=== PATIENT | male | born 1945 | race Caucasian/White ===

== ENCOUNTER 2023-06-14 05:49 | Emergency (ER) | payer MEDICARE, MEDICAID, SELFPAY ==
--- NOTE | ~2023-06-14 | CT_ITS ---
CT head without contrast Indication: Seizure Technique: Serial scans were obtained through the brain without the administration of contrast. Dose reduction technique was used on this scan by utilizing automated exposure control and iterative recon struction technique. The dose-length product (DLP) was 605.33 mGy-cm. Findings: There is no evidence of intracranial hemorrhage, mass lesion, or acute infarct. The ventri cles and subarachnoid spaces are dilated, consistent with moderate to advanced atrophy. Low attenuat ion regions are seen within the periventricular white matter bilaterally, likely representing changes from chronic microvascular ischemic disease. There is no evidence of edema, mass effect or midline shift. The visualized paranasal sinuses and mastoid air cells are clear. Impression: No intracranial hemorrhage, mass, or acute infarct. Atrophy and chronic white matter changes, as above. Reviewed, dictated and finalized at location . Impression: No intracranial hemorrhage, mass, or acute infarct. Atrophy and chronic white matter changes, as above.
[2023-06-14 05:48] VITALS: BP 160/76; PULSE 99; RESP 14; TEMP 36.6; O2SAT 100
[2023-06-14 06:04] VITALS: O2SAT 97
[2023-06-14 06:06] VITALS: PULSE 97; O2SAT 99
--- NOTE | 2023-06-14 06:09 | PC.NURSE ---
This RN called [facility]. ISAIAS Zapien at facility states pt is normally a&ox2-3. Pt is a two assist and does not ambulate. Pt normally able to feed himself and follows instructions.
--- NOTE | 2023-06-14 06:16 | ECG_ITS ---
Measurements Intervals [place] Rate: 102 P: 76 VA: 203 QRS: 57 QRSD: 93 T: 54 QT: 346 QTc: 452 Interpretive Statements SINUS TACHYCARDIA BORDERLINE ST-T WAVE ABNORMALITY- INF/LAT LEADS BASELINE ARTIFACT- II, III, AVR, AVL, AVF, V1-V4 BORDERLINE ECG NO PREVIOUS ECG AVAILABLE FOR COMPARISON Electronically Signed On 06-14-2023 6:39:15 CDT by Michael Najera D.O.
[2023-06-14 06:34] LABS: Basophils Absolute Auto 0.1 K/mm3 (0.0-0.1); Eosinophils Absolute Auto 0.2 K/mm3 (0-0.3); Eosinophils Percent Auto 3.3 % (0-4.4); Hematocrit 36.7 % (42.0-52.0); Hemoglobin 12.1 g/dL (14.0-18.0); Immature Granulocyte Absolute 0.03 K/mm3 (0.00-0.031); Immature Granulocyte Percent A 0.4 % (0-0.5); Lymphocytes Absolute Auto 1.47 K/mm3 (0.9-3.2); Lymphocytes Percent Auto 20.1 % (18.3-44.2); Mean Corpuscular Hemoglobin 31.3 pg (26-34); Mean Corpuscular Volume 95.1 fl (80-100); Mean Platelet Volume 9.3 fl (7.4-10.4); Monocytes Absolute Auto 0.8 K/mm3 (0.1-0.6); Monocytes Percent Auto 11.1 % (2.6-8.5); Neutrophils Absolute Auto 4.7 K/mm3 (1.3-6.7); Neutrophils Percent Auto 64.1 % (45.5-73.1); Platelet Count Result 290 k/mm3 (150-375); Red Blood Count 3.86 M/mm3 (4.6-6.20); Red Cell Distribution Width 12.3 % (11.5-14.5); White Blood Count 7.3 K/mm3 (4.5-10.0)
[2023-06-14 06:49] LABS: Alanine Aminotransferase 18 U/L (6-50); Albumin Level 3.8 g/dL (3.5-5.1); Alkaline Phosphatase 116 U/L (38-126); Anion Gap 8 mmol/L (8-16); Aspartate Amino Transferase 27 U/L (17-59); Bilirubin,Total 0.4 mg/dL (0.2-1.3); Blood Urea Nitrogen 10 mg/dL (9-20); Calcium 8.7 mg/dL (8.4-10.2); Carbon Dioxide 25 mmol/L (22-30); Chloride 103 mmol/L (98-107); Estimated CRCL calculation 90 ml/min; Estimated Glomerular Filt Rate > 60; Glucose 106 mg/dL (65-110); Potassium 3.9 mmol/L (3.4-5.0); Sodium 136 mmol/L (137-145)
[2023-06-14] MEDS: LORazepam INJ (*CRX) 2 MG/ML VIAL (06:50)
[2023-06-14 07:01] VITALS: BP 193/102; PULSE 119; RESP 19; O2SAT 99
[2023-06-14 07:15] VITALS: BP 159/75; PULSE 102; RESP 15; O2SAT 95
--- NOTE | 2023-06-14 07:20 | PC.NURSE ---
bssr given to ISAIAS Bernstein at this time.
--- NOTE | 2023-06-14 07:23 | PC.NURSE ---
Updated spouse on pt status
--- NOTE | 2023-06-14 09:26 | PC.NURSE ---
Patient too drowsy to take PO medication.
--- NOTE | 2023-06-14 09:48 | ED.SEIZURE ---
HPI - Seizure General Chief Complaint: Seizure Stated Complaint: SEIZURE Time Seen by Provider: 06/14/23 07:00 History of Present Illness HPI Narrative: Patient is a 69-year-old male who presents ER after having seizure at his facility. Patient is on Keppra 1.5 g in the morning and 2 g in the evening, as well as Tegretol 600 mg b.i.d.. No reports of trauma. Patient is awake alert at this time. He does have dementia and cannot provide history. Related Data Home Medications Medication Instructions Recorded Confirmed amlodipine 10 mg tablet 10 mg DAILY 06/14/23 06/14/23 atorvastatin 40 mg tablet 40 mg PO DAILY 06/14/23 06/14/23 carbamazepine 300 mg 600 mg PO Q12H 06/14/23 06/14/23 capsule,extended release [id number] donepezil 5 mg tablet 5 mg PO HS 06/14/23 06/14/23 levetiracetam 1,000 mg tablet 2,000 mg PO HS 06/14/23 06/14/23 levetiracetam 750 mg tablet 1,500 mg PO DAILY 06/14/23 06/14/23 memantine 5 mg tablet 5 mg PO BID 06/14/23 06/14/23 Allergies Allergy/AdvReac Type Severity Reaction Status Date / Time Iodinated Contrast Media Allergy Unknown Verified 06/14/23 06:23 metrizamide Allergy Unknown Verified 06/14/23 06:23 simvastatin Allergy Unknown Verified 06/14/23 06:23 Review of Systems Review of Systems: ROS unobtainable: Yes unobtainable due to mental status PMFSH Past Medical History Medical History (Updated 06/14/23 @ 12:20 by Rob Tong MD) Dementia Hyperlipidemia Hypertension Seizure disorder Social History Social History (Updated 06/14/23 @ 10:00 by Rob Tong MD) Social History: resides at [facility], patient is a DNR Exam Narrative: GENERAL: Well-appearing, well-nourished, and in no acute distress. HEAD: Normocephalic, atraumatic. EYES: PERRL and EOMI. ENT: Mucous membranes moist. CHEST: Clear to auscultation. No respiratory distress. HEART: Regular rate and rhythm. Normal peripheral pulses. ABDOMEN: Soft, nontender, nondistended. EXTREMITIES: Normal range of motion. No edema. SKIN: Warm, dry, no rash. abrasion right hand dorsal aspect NEURO: Alert and oriented x1. PSYCH: Normal mood and affect. Course Course Emergency Course: Alisha infused. Seizure free since 6:30 a.m.. Discharge back to facility. Vital Signs Vital signs: Vital Signs Temperature 97.9 F 06/14/23 05:48 Pulse Rate 99 06/14/23 05:48 Respiratory Rate 14 06/14/23 05:48 Blood Pressure 160/76 H 06/14/23 05:48 Pulse Oximetry 100 06/14/23 05:48 Oxygen Delivery Room Air 06/14/23 05:48 Temperature 97.9 F 06/14/23 05:48 Pulse Rate 70 06/14/23 12:16 Respiratory Rate 26 H 06/14/23 12:16 Blood Pressure 149/69 H 06/14/23 12:16 Pulse Oximetry 99 06/14/23 12:16 Oxygen Delivery Nasal Cannula 06/14/23 07:15 MDM - Seizure Lab Data 06/14/23 06:22 06/14/23 06:22 Labs: Lab Results 06/14/23 Range/Units 06:22 WBC 7.3 (4.5-10.0) K/mm3 RBC 3.86 L (4.6-6.20) M/mm3 Hgb 12.1 L (14.0-18.0) g/dL Hct 36.7 L (42.0-52.0) % MCV 95.1 (80-100) fl MCH 31.3 (26-34) pg MCHC 33.0 (32-36) g/dl RDW 12.3 (11.5-14.5) % Plt Count 290 (150-375) k/mm3 MPV 9.3 (7.4-10.4) fl Immature Gran % (Auto) 0.4 (0-0.5) % Neut % (Auto) 64.1 (45.5-73.1) % Lymph % (Auto) 20.1 (18.3-44.2) % [place] % (Auto) 11.1 H (2.6-8.5) % Eos % (Auto) 3.3 (0-4.4) % Baso % (Auto) 1.0 (0.2-1.2) % Lymph # (Auto) 1.47 (0.9-3.2) K/mm3 [place] # (Auto) 0.8 H (0.1-0.6) K/mm3 Eos # (Auto) 0.2 (0-0.3) K/mm3 Baso # (Auto) 0.1 (0.0-0.1) K/mm3 Abs Immat Gran (auto) 0.03 (0.00-0.031) K/mm3 Absolute Neuts (auto) 4.7 (1.3-6.7) K/mm3 Absolute Nucleated RBC 0.000 (0.0-0.012) K/mm3 Nucleated RBC % 0.0 (0.0-0.2) % Sodium 136 L (137-145) mmol/L Potassium 3.9 (3.4-5.0) mmol/L Chloride 103 (98-107) mmol/L Carbon Dioxide 25 (22-30) mmol/L Anion Gap 8 (8-16) mmol/L BUN 10 (9-20) mg/dL Creatinine 0.70 (0.7-1.3) mg/dL Estim Creat Clear Calc 90 ml/min Estimated GFR > 60 (59 - ) Glucose 106 (65-110) mg/dL Calcium 8.7 (8.4-10.2) mg/dL Total Bilirubin 0.4 (0.2-1.3) mg/dL AST 27 (17-59) U/L ALT 18 (6-50) U/L Alkaline Phosphatase 116 (38-126) U/L Total Protein 6.0 L (6.3-8.2) g/dL Albumin 3.8 (3.5-5.1) g/dL Discharge Plan Discharge Clinical Impression: Breakthrough seizure Patient Disposition: Home, Self-Care Condition: Stable Instructions: Recurrent Seizures in Adults (ED) Additional Instructions: return the ER if you have fever 100.4? F, you cannot keep down food or water, you lose consciousness, or you have additional concerns. Prescriptions: No Action atorvastatin 40 mg Tablet 40 mg PO DAILY donepezil 5 mg Tablet 5 mg PO HS amlodipine 10 mg Tablet 10 mg DAILY levetiracetam 750 mg Tablet 1,500 mg PO DAILY memantine 5 mg Tablet 5 mg PO BID carbamazepine 300 mg Capsule, Er Multiphase 12 Hr 600 mg PO Q12H levetiracetam 1,000 mg Tablet 2,000 mg PO HS Follow-up/Referrals: Miguel,Gildardo Hill DO [Primary Care Provider] - 1 Week
[2023-06-14 12:16] VITALS: BP 149/69; PULSE 70; RESP 26; O2SAT 99
== END 2023-06-14 13:25 | disposition home or self-care (01) ==
PROVIDERS: Emergency Provider Emergency Medicine; PCP Internal Medicine
DX: G40.909 Epilepsy, unspecified, not intractable, without status epilepticus (principal); F03.90 Unspecified dementia, unspecified severity, without behavioral disturbance, psychotic disturbance, mood disturbance, and anxiety; I10 Essential (primary) hypertension; E78.5 Hyperlipidemia, unspecified; R00.0 Tachycardia, unspecified; R94.31 Abnormal electrocardiogram [ECG] [EKG]
CPT/HCPCS: 36415; 70450; 80053; 85025; 93005; 96365; 96375; 99284; J1953; J2060

== ENCOUNTER 2023-07-01 17:05 | Emergency (ER) | payer MEDICARE, SELFPAY ==
--- NOTE | ~2023-07-01 | CT_ITS ---
EXAMINATION: CT cervical spine wo con DATE: 07/01/2023 18:55 INDICATION: fall TECHNIQUE: Computed tomography (CT) of the cervical spine was performed without intravenous contrast. Automated exposure control and iterative reconstruction technique were employed. The dose-length pro duct was 434.06 mGy-cm. COMPARISON: None. FINDINGS: Vertebral Body Alignment: Intact. Mild reversal of the normal cervical lordosis centered at C5-6. Craniocervical and atlantoaxial alignment: Moderate degenerative change. Alignment intact. Osseous structures/fracture: No evidence of a lytic or blastic process in the visualized spine. No e vidence of acute fracture in the cervical spine. Mild anterior wedge deformity at T1. Cervical soft tissues: The paraspinal soft tissues planes are maintained. Degenerative changes: Degenerative changes, without severe neural foraminal or central canal narrowin g. IMPRESSION: No acute fracture or traumatic malalignment in the cervical spine. Mild anterior wedge deformity at T1 represent acute or chronic compression fracture, correlate for pa in/tenderness. Reviewed, dictated and finalized at location K. IMPRESSION: No acute fracture or traumatic malalignment in the cervical spine. Mild anterior wedge deformity at T1 represent acute or chronic compression frac ture, correlate for pain/tenderness.
--- NOTE | ~2023-07-01 | CT_ITS ---
EXAMINATION: CT brain wo con DATE: 07/01/2023 18:55 INDICATION: fall . TECHNIQUE: Computed tomography (CT) of the head was performed without intravenous contrast. The mA wa s adjusted according to patient size. Iterative reconstruction technique was employed. The dose-lengt h product was 605.33 mGy-cm. COMPARISON: 06/14/2023. FINDINGS: No acute intracranial hemorrhage or extra-axial fluid collection. No hydrocephalus, mass, or herniation. No acute ischemic infarct. Unremarkable dural venous sinus attenuation. No acute osseous abnormality. The aerated spaces are clear. Moderate atrophy and chronic white matter change. Atherosclerotic intracranial calcification. Basilar dolichoectasia. IMPRESSION: No acute intracranial process. Reviewed, dictated and finalized at location K.
--- NOTE | ~2023-07-01 | CT_ITS ---
EXAMINATION: CT pelvis wo con DATE: 07/01/2023 18:56 INDICATION: Fall, sacral pain TECHNIQUE: Computed tomography (CT) of the pelvis was performed without intravenous contrast. Automat ed exposure control and iterative reconstruction technique were employed. The dose-length product was 641.84 mGy-cm. COMPARISON: None FINDINGS: Osseous demineralization. Severe degenerative changes in the lumbar spine. Scattered bone i slands. No fracture or dislocation. No suspicious lytic or blastic lesion. Atherosclerotic arterial c alcifications. Mild body wall edema. Normal urinary bladder. Presumed prostatectomy. Mild presacral e margi. IMPRESSION: No acute osseous finding in the pelvis Reviewed, dictated and finalized at location K.
[2023-07-01 17:11] VITALS: BP 152/68; PULSE 67; RESP 16; TEMP 36.4; O2SAT 100
--- NOTE | 2023-07-01 18:07 | ED.HEATRA ---
HPI - Head Injury General Chief complaint: Head Injury Stated complaint: fall, LOC, dementia Time Seen by Provider: 07/01/23 17:07 History of Present Illness HPI Narrative: 77-year-old male with history of dementia and seizure disorder presents to the ED from [facility] via EMS for a fall. Per EMS report, the patient slid out of his wheelchair and hit his head. Is unknown whether patient had loss of consciousness. The patient is reporting pain to the posterior head. C-collar in place by EMS. He is alert to self which is his baseline per half-way staff. He is not anticoagulated. He is also reporting pain to his low back near his buttocks. Denies chest pain, shortness of breath, dizziness or lightheadedness, vision changes, focal numbness or weakness abdominal pain nausea, diarrhea fever. Related Data Home Medications Medication Instructions Recorded Confirmed amlodipine 10 mg tablet 10 mg DAILY 06/14/23 06/14/23 atorvastatin 40 mg tablet 40 mg PO DAILY 06/14/23 06/14/23 carbamazepine 300 mg 600 mg PO Q12H 06/14/23 06/14/23 capsule,extended release [id number] donepezil 5 mg tablet 5 mg PO HS 06/14/23 06/14/23 levetiracetam 1,000 mg tablet 2,000 mg PO HS 06/14/23 06/14/23 levetiracetam 750 mg tablet 1,500 mg PO DAILY 06/14/23 06/14/23 memantine 5 mg tablet 5 mg PO BID 06/14/23 06/14/23 Allergies Allergy/AdvReac Type Severity Reaction Status Date / Time Iodinated Contrast Media Allergy Unknown Verified 06/14/23 06:23 metrizamide Allergy Unknown Verified 06/14/23 06:23 simvastatin Allergy Unknown Verified 06/14/23 06:23 Review of Systems Review of Systems: CONSTITUTIONAL: Denies fever, chills, or sweats. EYES: Denies visual changes, redness, or discharge. ENT: Denies rhinorrhea, congestion, sore throat, or otalgia. CARDIOVASCULAR: Denies chest pain, palpitations, or edema. RESPIRATORY: Denies cough or dyspnea. GASTROINTESTINAL: Denies abdominal pain, nausea, vomiting, or diarrhea. GENITOURINARY: Denies dysuria or hematuria. SKIN: Denies rash or itching. MUSCULOSKELETAL: See HPI NEUROLOGIC: Denies headache, numbness, or weakness. PSYCHIATRIC: Denies anxiety or depression. [facility] Past Medical History Medical History Dementia Hyperlipidemia Hypertension Seizure disorder Social History Social History Social History: resides at [facility], patient is a DNR Exam Narrative: GENERAL: Well-appearing, well-nourished, and in no acute distress. HEAD: Normocephalic, atraumatic. EYES: PERRLA and EOMI. ENT: Nares clear, no rhinorrhea or epistaxis. Mucous membranes moist. NECK: C-collar in place. Once C-collar removed, there is no tenderness, step-offs or deformities to the cervical spine. BACK: No midline thoracic or lumbar spinous tenderness, step-offs or deformities. Midline tenderness to the sacrum without step-offs or deformities. No overlying ulcerations or ecchymosis. CHEST: Clear to auscultation. No respiratory distress. HEART: Regular rate and rhythm. No murmur heard. Normal peripheral pulses. ABDOMEN: Soft, nontender, nondistended, normal active bowel sounds. EXTREMITIES: Normal range of motion. No edema. No tenderness to upper lower extremities. Extremities are pain, warm and dry, well perfused. SKIN: Warm, dry, no rash. NEURO: No focal deficits. Alert and oriented x1. Cranial nerves 2-12 intact. Sensation intact throughout. Moving all extremities spontaneously. Course Vital Signs Vital signs: Vital Signs Temperature 97.6 F 07/01/23 17:11 Pulse Rate 67 07/01/23 17:11 Respiratory Rate 16 07/01/23 17:11 Blood Pressure 152/68 H 07/01/23 17:11 Pulse Oximetry 100 07/01/23 17:11 Oxygen Delivery Room Air 07/01/23 17:11 Temperature 97.8 F 07/01/23 19:27 Pulse Rate 66 07/01/23 20:53 Respiratory Rate 12 07/01/23 20:53 Blood Pressure 148/60 H 07/01/23 20:53 Pulse Oximetry 99 07/01/23 20:53 Oxygen Delivery Room Air 07/01/23 17:11 MDM - Head Injury MDM Narrative Medical decision making narrative: 69-year-old male with history of dementia presents via EMS after falling out of his wheelchair onto the ground. Unknown LOC. C-collar in place. He is A&O x1 which is his baseline. He is not anticoagulated. Vital stable. Exam is significant for the above. CBC without leukocytosis. Hemoglobin is stable at 12. Chemistries show a sodium of 132, otherwise largely unremarkable. His CK is normal at 49. CT of the brain shows no acute intracranial process. CT cervical spine shows no acute fracture traumatic malalignment, there is evidence of mild anterior wedge deformity at T1 which represents an acute or chronic compression fracture. The patient has no tenderness to this region, he remains neurologically intact.. C-collar removed. CT of the pelvis shows no acute osseous findings in the pelvis or sacrum. EKG shows sinus rhythm with first-degree AV block, no ischemic changes. UA with 2+ bacteriuria and nitrites. On re-evaluation, patient states he feels fine. He has no complaints. Will provide Cipro for UTI, 1st dose provided here. Feel he is safe to be discharged back to his half-way facility. Discharged in stable condition. Lab Data 07/01/23 18:29 07/01/23 18:29 Labs: Lab Results 07/01/23 07/01/23 Range/Units 18:29 19:46 WBC 8.1 (4.5-10.0) K/mm3 RBC 3.77 L (4.6-6.20) M/mm3 Hgb 12.0 L (14.0-18.0) g/dL Hct 36.5 L (42.0-52.0) % MCV 96.8 (80-100) fl MCH 31.8 (26-34) pg MCHC 32.9 (32-36) g/dl RDW 12.8 (11.5-14.5) % Plt Count 312 (150-375) k/mm3 MPV 8.9 (7.4-10.4) fl Immature Gran % (Auto) 0.5 (0-0.5) % Neut % (Auto) 74.0 H (45.5-73.1) % Lymph % (Auto) 12.2 L (18.3-44.2) % [place] % (Auto) 10.5 H (2.6-8.5) % Eos % (Auto) 2.1 (0-4.4) % Baso % (Auto) 0.7 (0.2-1.2) % Lymph # (Auto) 0.99 (0.9-3.2) K/mm3 [place] # (Auto) 0.9 H (0.1-0.6) K/mm3 Eos # (Auto) 0.2 (0-0.3) K/mm3 Baso # (Auto) 0.1 (0.0-0.1) K/mm3 Abs Immat Gran (auto) 0.04 H (0.00-0.031) K/mm3 Absolute Neuts (auto) 6.0 (1.3-6.7) K/mm3 Absolute Nucleated RBC 0.000 (0.0-0.012) K/mm3 Nucleated RBC % 0.0 (0.0-0.2) % Sodium 132 L (137-145) mmol/L Potassium 4.6 (3.4-5.0) mmol/L Chloride 97 L (98-107) mmol/L Carbon Dioxide 31 H (22-30) mmol/L Anion Gap 4 (4-12) mmol/L BUN 18 (9-20) mg/dL Creatinine 0.60 L (0.7-1.3) mg/dL Estim Creat Clear Calc 83 ml/min Estimated GFR > 60 (59 - ) Glucose 105 (65-110) mg/dL Calcium 8.7 (8.4-10.2) mg/dL Total Bilirubin 0.4 (0.2-1.3) mg/dL AST 21 (17-59) U/L ALT 13 (6-50) U/L Alkaline Phosphatase 113 (38-126) U/L Total Creatine Kinase 49 L (55-170) U/L Total Protein 7.0 (6.3-8.2) g/dL Albumin 3.9 (3.5-5.1) g/dL Urine Color Yellow (Yellow) Urine Appearance Clear (Clear) Urine pH 7.0 (5.0-9.0) Ur Specific [place] 1.014 (1.001-1.035) Urine Protein Negative (Negative) mg/dL Urine Glucose (UA) Negative (Negative) mg/dL Urine Ketones Negative (Negative) mg/dL Ur Blood (Man) Negative (Negative) Urine Nitrate Positive H (Negative) Urine Bilirubin Negative (Negative) Urine Urobilinogen 1.0 (<2.0) mg/dL Leukocyte Esterase Rfl Negative (Negative) SUGEY/UL Urine RBC 0-2 (0-2) /hpf Urine WBC 0-5 (0-3) /hpf Ur Squamous Epith Cells None seen (Few) /hpf Urine Bacteria 2+ H /hpf Urine Casts 0-2 Urine Characteristics Clear Discharge Plan Discharge Clinical Impression: Closed head injury Qualifiers: Encounter type: initial encounter Qualified Code(s): S09.90XA - Unspecified injury of head, initial encounter Fall Qualifiers: Encounter type: initial encounter Qualified Code(s): W19.XXXA - Unspecified fall, initial encounter Compression fracture of T1 vertebra Qualifiers: Encounter type: sequela Qualified Code(s): S22.010S - Wedge compression fracture of first thoracic vertebra, sequela UTI (urinary tract infection) Qualifiers: Urinary tract infection type: acute cystitis Hematuria presence: without hematuria Qualified Code(s): N30.00 - Acute cystitis without hematuria Patient Disposition: Acute Care Hospital Condition: Stable Instructions: Antibiotic Form, Urinary Tract Infection in Men (DC), Head Injury (ED) Additional Instructions: Your CT scan shows a T1 compression fracture, however no tenderness area therefore it is likely old. The remainder of her CT scans are normal. Urine is concerning for urinary tract infection, send antibiotics, please take these as directed. Please follow closely with her primary care provider. Return to the emergency department if you hit your head, lose consciousness, or other concerning symptoms. Prescriptions: New ciprofloxacin HCl 250 mg tablet 250 mg PO Q12H Qty: 14 0RF No Action atorvastatin 40 mg Tablet 40 mg PO DAILY donepezil 5 mg Tablet 5 mg PO HS amlodipine 10 mg Tablet 10 mg DAILY levetiracetam 750 mg Tablet 1,500 mg PO DAILY memantine 5 mg Tablet 5 mg PO BID carbamazepine 300 mg Capsule, Er Multiphase 12 Hr 600 mg PO Q12H levetiracetam 1,000 mg Tablet 2,000 mg PO HS Follow-up/Referrals: Miguel,Gildardo Hill DO [Primary Care Provider] -
--- NOTE | 2023-07-01 18:18 | ECG_ITS ---
Measurements Intervals [place] Rate: 67 P: 100 SD: 244 QRS: 11 QRSD: 94 T: 17 QT: 416 AVG RR: 893 QTc: 431 QTCB: 440 QTCF: 431 Interpretive Statements SINUS RHYTHM WITH FIRST DEGREE AV BLOCK ABNORMAL ECG SEE SCANNED COPY FOR SIGNATURE MTDD
[2023-07-01 18:31] VITALS: BP 167/70; PULSE 69; RESP 15; O2SAT 99
[2023-07-01] MEDS: ACETAMINOPHEN 325 MG TABLET 650 MG PO (18:32)
[2023-07-01 18:40] LABS: Basophils Absolute Auto 0.1 K/mm3 (0.0-0.1); Basophils Percent Auto 0.7 % (0.2-1.2); Eosinophils Absolute Auto 0.2 K/mm3 (0-0.3); Eosinophils Percent Auto 2.1 % (0-4.4); Hematocrit 36.5 % (42.0-52.0); Immature Granulocyte Absolute 0.04 K/mm3 (0.00-0.031); Immature Granulocyte Percent A 0.5 % (0-0.5); Lymphocytes Absolute Auto 0.99 K/mm3 (0.9-3.2); Lymphocytes Percent Auto 12.2 % (18.3-44.2); Mean Corpuscular HGB Conc 32.9 g/dl (32-36); Mean Corpuscular Hemoglobin 31.8 pg (26-34); Mean Corpuscular Volume 96.8 fl (80-100); Mean Platelet Volume 8.9 fl (7.4-10.4); Monocytes Absolute Auto 0.9 K/mm3 (0.1-0.6); Monocytes Percent Auto 10.5 % (2.6-8.5); Platelet Count Result 312 k/mm3 (150-375); Red Blood Count 3.77 M/mm3 (4.6-6.20); Red Cell Distribution Width 12.8 % (11.5-14.5); White Blood Count 8.1 K/mm3 (4.5-10.0)
[2023-07-01 18:47] LABS: Creatine Kinase 49 U/L (55-170)
--- NOTE | 2023-07-01 19:05 | PC.NURSE ---
Report given to Donn ESPARZA, all questions answered
[2023-07-01 19:19] LABS: Alanine Aminotransferase 13 U/L (6-50); Albumin Level 3.9 g/dL (3.5-5.1); Alkaline Phosphatase 113 U/L (38-126); Anion Gap 4 mmol/L (4-12); Aspartate Amino Transferase 21 U/L (17-59); Bilirubin,Total 0.4 mg/dL (0.2-1.3); Blood Urea Nitrogen 18 mg/dL (9-20); Calcium 8.7 mg/dL (8.4-10.2); Carbon Dioxide 31 mmol/L (22-30); Chloride 97 mmol/L (98-107); Estimated CRCL calculation 83 ml/min; Estimated Glomerular Filt Rate > 60; Glucose 105 mg/dL (65-110); Potassium 4.6 mmol/L (3.4-5.0); Sodium 132 mmol/L (137-145)
[2023-07-01 19:27] VITALS: BP 134/54; PULSE 70; RESP 16; TEMP 36.6; O2SAT 100
[2023-07-01 20:47] LABS: Appearance Urine Clear (Clear); Bacteria Urine 2+ /hpf; Bilirubin Urine Negative (Negative); Blood Urine Negative (Negative); Color Urine Yellow (Yellow); Glucose Urine UA Negative (Negative); Ketones Urine Negative (Negative); Leukocyte Esterase Ur Negative LEU/UL (Negative); Nitrate Urine Positive (Negative); Non Pathogenic Casts 0-2; Protein Urine Negative (Negative); RBC Urine 0-2 /hpf (0-2); Specific Grav Ur 1.014 (1.001-1.035); Squamous Epithelial Cell Urine None Seen /hpf (Few); WBC Urine 0-5 /hpf (0-3)
[2023-07-01 20:49] LABS: Add Urine Microscopic? YES
[2023-07-01 20:53] VITALS: BP 148/60; PULSE 66; RESP 12; O2SAT 99
[2023-07-01 21:07] VITALS: BP 139/52; PULSE 65; RESP 13; O2SAT 99
[2023-07-01] MEDS: CIPROFLOXACIN 250 MG TABLET PO (21:15)
[2023-07-01 21:45] VITALS: BP 129/55; PULSE 64; RESP 16; O2SAT 99
== END 2023-07-01 22:22 ==
PROVIDERS: Emergency Provider Physician Assistant; PCP Internal Medicine
DX: S09.90XA Unspecified injury of head, initial encounter (principal); N30.00 Acute cystitis without hematuria; S22.010S Wedge compression fracture of first thoracic vertebra, sequela; F03.90 Unspecified dementia, unspecified severity, without behavioral disturbance, psychotic disturbance, mood disturbance, and anxiety; G40.909 Epilepsy, unspecified, not intractable, without status epilepticus; I10 Essential (primary) hypertension; E78.5 Hyperlipidemia, unspecified; Z66 Do not resuscitate; W05.0XXA Fall from non-moving wheelchair, initial encounter; X58.XXXD Exposure to other specified factors, subsequent encounter
CPT/HCPCS: 36415; 70450; 72125; 72192; 80053; 81001; 82550; 85025; 93005; 99284; A9270; L0140

== ENCOUNTER 2023-10-16 12:51 | Inpatient (IN) | payer OTHER, SELFPAY ==
[2023-10-16] VITALS (8 sets, daily range): BP systolic 123–137; BP diastolic 61–72; PULSE 68–98; RESP 16–20; TEMP 36.5–37.2; O2SAT 98–100; BMI 23.8
--- NOTE | ~2023-10-16 | US_ITS ---
EXAMINATION:US venous doppler LE BI INDICATION:New stroke. Pulmonary embolism. TECHNIQUE: Multiple grayscale, color flow and Doppler images of the right and left lower extremity de ep venous systems were obtained and reviewed. COMPARISON:No prior studies for comparison. FINDINGS: The right common femoral, superficial femoral and popliteal veins demonstrate normal respir atory variation, augmentation and compressibility. Color flow is also seen within the posterior tibi al, peroneal, greater saphenous and profunda veins. There is deep venous thrombosis of the left popliteal, posterior tibial, peroneal and gastrocnemius v eins. IMPRESSION: 1: Extensive deep venous thrombosis of the left lower extremity. Reviewed, dictated and finalized at location B.
--- NOTE | ~2023-10-16 | CT_ITS ---
CT brain wo con Ordering provider: Alisa Joy PA-C History: 78 years Male with . decreased levels of responsiveness . Comparison: July 01, 2023 Technique: CT of the head without contrast. Radiation reduction technique utilized. DLP is 605.33 mGy-cm. FINDINGS: BRAIN PARENCHYMA AND CSF SPACES: Mild leukoaraiosis and diffuse cortical atrophy. Mild atheromatous d isease. Slightly dilated ventricles. No midline shift, mass effect or hemorrhage. The brain parenchy ma and CSF spaces are otherwise normal. VISUALIZED PARANASAL SINUSES: Well aerated. MASTOIDS: Well aerated. BONES: The bones appear intact. SOFT TISSUES: Visualized nasopharynx is normal. Superficial soft tissues are normal. IMPRESSION: No acute intracranial findings. Reviewed, dictated and finalized at location A.
--- NOTE | ~2023-10-16 | MR_ITS ---
EXAMINATION: MR brain/brain stem wo con DATE: 10/19/2023 13:51 INDICATION: Altered mental status TECHNIQUE: Magnetic resonance imaging (MRI) of the brain and brainstem was performed without intraven ous contrast. Sequences included sagittal and axial T1-weighted SE, axial diffusion-weighted FS SE, a xial T2*-weighted GRE, axial T2-weighted FLAIR, and axial T2-weighted FSE. Postcontrast axial and cor onal T1-weighted SE was obtained. Apparent diffusion coefficient (ADC) maps were created. COMPARISON: None. FINDINGS: Small focus of restricted diffusion consistent with acute lacunar infarct in the left thalamus. There are a few scattered small old lacunar infarcts in the left frontal, right parietal and right peritri gonal periventricular white matter. No intracranial hemorrhage or abnormal intracranial mass lesion. Extensive areas of nonspecific increased T2-weighted signal intensity in the cerebral white matter, p redominantly involving the deep and periventricular white matter. There are no intraparenchymal signa l abnormalities seen on the other pulse sequences. Symmetric prominence of the sulci and ventricles c onsistent with moderate age-appropriate diffuse cerebral volume loss. There are no abnormal extra-axi al fluid collections. Flow voids are seen in the cerebral arteries on the T2-weighted sequences consi stent with their expected patency. Visualized orbits and soft tissues are unremarkable. IMPRESSION: 1. Acute small lacunar infarct at the left thalamus. 2. A few additional small old periventricular lacunar infarcts in the left frontal, right parietal an d right peritrigonal white matter which is more extensive periventricular predominant white matter T2 hyperintensity consistent with chronic small vessel ischemic disease. Reviewed, dictated and finalized at location A. IMPRESSION: 1. Acute small lacunar infarct at the left thalamus. 2. A few additional small old periventricular lacunar infarcts in the left fron keyana, right parietal and right peritrigonal white matter which is more extensive periventricular predominant white matter T2 hyperintensity consistent with chr onic small vessel ischemic disease.
--- NOTE | ~2023-10-16 | CT_ITS ---
EXAMINATION: CTA brain carotid DATE: 10/20/2023 08:56 CDT INDICATION: Stroke TECHNIQUE: Computed tomographic angiography (CTA) of the head was performed without and with 100 mL O mnipaque-350 intravenous contrast. CTA of the neck was performed with intravenous contrast. The dose- length product was 1915.07 mGy-cm. Maximum intensity projection and volume rendered 3D-reconstruction s were created by the technologist on a separate workstation. Automated exposure control and iterativ e reconstruction technique were employed. COMPARISON: MRI dated 10/19/[address] dated 10/16/2023. FINDINGS: HEAD CTA: Generalized atrophy. There are scattered moderate periventricular and subcortical white mat ter changes, most likely related to small vessel ischemic disease (microangiopathy). No acute intracr anial hemorrhage, infarction, mass or mass effect. No ventriculomegaly or midline shift. Basilar cist erns are patent. The anterior, middle and posterior cerebral arteries are symmetric. There is intracr anial atherosclerosis without significant stenosis or occlusion. Atherosclerotic changes primarily in volving the cavernous segments of the internal carotid arteries. There is a dominant right vertebral artery. No evidence for aneurysm. NECK CTA: There is extensive pulmonary embolism involving the left main pulmonary artery, left upper lobe pulmonary artery and left lower lobe pulmonary artery, partially visualized. Large thrombus ramu en. There is atherosclerosis of the common carotid and internal carotid arteries There is 66% stenosis of the proximal right internal carotid artery relative to normal distal artery lumen diameter (NASCET criteria). There is 60% stenosis of the proximal left internal carotid artery relative to normal distal artery lumen diameter. IMPRESSION: 1. Pulmonary embolism of the left pulmonary arteries involving the main as well as the upper and lowe r lobe lobar pulmonary arteries, large thrombus burden. 2: Moderate stenosis of the internal carotid arteries measuring 66% on the right and 60% on the left. 3: Chronic age-related intracranial findings. Dr. Johnathan Roldan discussed with the patient's nurse Bonita on thorough medical floor at 10/20/2023 09:07 CDT. Reviewed, dictated and finalized at location B. IMPRESSION: 1. Pulmonary embolism of the left pulmonary arteries involving the main as well as the upper and lower lobe lobar pulmonary arteries, large thrombus burden. 2: Moderate stenosis of the internal carotid arteries measuring 66% on the righ t and 60% on the left. 3: Chronic age-related intracranial findings. Dr. Johnathan Roldan discussed with the patient's nurse Bonita on thorough medical fl oor at 10/20/2023 09:07 CDT.
--- NOTE | ~2023-10-16 | MR_ITS ---
EXAMINATION: MR brain/brain stem wo con DATE: 10/23/2023 16:39 INDICATION: Decreased mental status. TECHNIQUE: Magnetic resonance imaging (MRI) of the brain and brainstem was performed without intraven ous contrast. COMPARISON: Brain MRI 10/19/2023, head CT 10/20/2023 FINDINGS: There is an acute infarct in the left thalamus. There is no intracranial hemorrhage or abno rmal mass lesion. There are scattered areas of nonspecific increased T2-weighted signal intensity in the cerebral white matter and momo. The ventricles are normal in size. The paranasal sinuses are ko r. The orbits are normal. The mastoid air cells are normal. IMPRESSION: 1. Stable acute infarct in the left thalamus. 2. Extensive nonspecific cerebral white matter disease and pontine disease, which likely represents c hronic small vessel ischemic disease. Reviewed, dictated and finalized at location A. IMPRESSION: 1. Stable acute infarct in the left thalamus. 2. Extensive nonspecific cerebral white matter disease and pontine disease, whi ch likely represents chronic small vessel ischemic disease.
--- NOTE | 2023-10-16 12:55 | ECG_ITS ---
Test Date: 2023-10-16 12:58:52 Measurements Intervals [place] Rate: 92 P: 12 DE: 158 QRS: 34 QRSD: 86 T: 76 QT: 398 QTc: 495 Interpretive Statements SINUS RHYTHM WITH OCCASIONAL SUPRAVENTRICULAR PREMATURE COMPLEXES ST DEVIATION AND MODERATE T-WAVE ABNORMALITY, CONSIDER ANTEROLAT/INF ISCHEMIA ABNORMAL ECG No previous ECG available for comparison Electronically Signed On 10-16-2023 13:56:36 CDT by Michael Najera D.O.
[2023-10-16 13:43] LABS: Basophils Absolute Auto 0.1 K/mm3 (0.0-0.1); Basophils Percent Auto 0.4 % (0.2-1.2); Eosinophils Absolute Auto 0.1 K/mm3 (0-0.3); Eosinophils Percent Auto 0.6 % (0-4.4); Hematocrit 43.5 % (42.0-52.0); Hemoglobin 13.3 g/dL (14.0-18.0); Immature Granulocyte Absolute 0.05 K/mm3 (0.00-0.031); Immature Granulocyte Percent A 0.4 % (0-0.5); Lymphocytes Absolute Auto 0.89 K/mm3 (0.9-3.2); Lymphocytes Percent Auto 7.8 % (18.3-44.2); Mean Corpuscular HGB Conc 30.6 g/dl (32-36); Mean Corpuscular Volume 104.8 fl (80-100); Mean Platelet Volume 10.9 fl (7.4-10.4); Monocytes Absolute Auto 0.8 K/mm3 (0.1-0.6); Monocytes Percent Auto 6.5 % (2.6-8.5); Neutrophils Absolute Auto 9.7 K/mm3 (1.3-6.7); Neutrophils Percent Auto 84.3 % (45.5-73.1); Platelet Count Result 168 k/mm3 (150-375); Red Blood Count 4.15 M/mm3 (4.6-6.20); Red Cell Distribution Width 13.1 % (11.5-14.5); White Blood Count 11.5 K/mm3 (4.5-10.0)
[2023-10-16 13:51] LABS: INR 1.5; Prothrombin Time 18.1 Seconds (11.1-14.7)
[2023-10-16 13:52] LABS: Partial Thromboplastin Time 26.3 Seconds (22.3-36.8)
[2023-10-16 13:54] LABS: Appearance Urine Turbid (Clear); Bacteria Urine 4+ /hpf; Bilirubin Urine Negative (Negative); Blood Urine Negative (Negative); Color Urine Dark Yellow (Yellow); Glucose Urine UA Negative (Negative); Ketones Urine Trace mg/dL (Negative); Leukocyte Esterase Ur 2+ LEU/UL (Negative); Need Manual Microscopic Reviewed; Nitrate Urine Negative (Negative); Protein Urine 2+ mg/dL (Negative); RBC Urine 51-100 /hpf (0-2); Specific Grav Ur 1.022 (1.001-1.035); Squamous Epithelial Cell Urine None Seen /hpf (Few); Triple Phosphate Crystal Urine Present /hpf; WBC Urine 21-50 /hpf (0-3)
[2023-10-16 13:55] LABS: Add Urine Microscopic? YES
[2023-10-16 14:07] LABS: Alanine Aminotransferase 12 U/L (6-50); Albumin Level 3.6 g/dL (3.5-5.1); Alkaline Phosphatase 128 U/L (38-126); Anion Gap 13 mmol/L (4-12); Aspartate Amino Transferase 23 U/L (17-59); Bilirubin,Total 0.7 mg/dL (0.2-1.3); Blood Urea Nitrogen 47 mg/dL (9-20); Calcium 8.5 mg/dL (8.4-10.2); Carbon Dioxide 25 mmol/L (22-30); Chloride 127 mmol/L (98-107); Estimated CRCL calculation 48 ml/min; Estimated Glomerular Filt Rate 53; Glucose 122 mg/dL (65-110); Potassium 3.5 mmol/L (3.4-5.0); Sodium 165 mmol/L (137-145)
--- NOTE | 2023-10-16 15:08 | ED.AMS ---
HPI - Altered Mental Status General Chief Complaint: Altered Mental Status Stated Complaint: ams x 24 hours Time Seen by Provider: 10/16/23 14:11 Source: EMS and RN notes reviewed Mode of arrival: EMS Limitations: clinical condition and dementia History of Present Illness HPI narrative: Patient presents with report of altered mental status and lethargic for the past 24 hours. At baseline reportedly A&Ox2-3. Hx of seizures and dementia. Unable to provide any history for self. Related Data Home Medications Medication Instructions Recorded Confirmed amlodipine 10 mg tablet 10 mg PO DAILY 06/14/23 10/16/23 atorvastatin 40 mg tablet 40 mg PO DAILY 06/14/23 10/16/23 carbamazepine 300 mg 600 mg PO Q12H 06/14/23 10/16/23 capsule,extended release [id number] donepezil 5 mg tablet 5 mg PO HS 06/14/23 10/16/23 levetiracetam 1,000 mg tablet 2,000 mg PO HS 06/14/23 10/16/23 levetiracetam 750 mg tablet 1,500 mg PO DAILY 06/14/23 10/16/23 memantine 5 mg tablet 5 mg PO Q12H 06/14/23 10/16/23 acetaminophen 325 mg tablet 650 mg PO Q4H PRN Pain 10/16/23 10/16/23 latanoprost 0.005 % eye drops 1 drp EACH EYE HS 10/16/23 10/16/23 lisinopril 20 mg tablet 20 mg PO DAILY 10/16/23 10/16/23 loperamide 2 mg tablet 2 mg PO Q4H PRN Diarrhea 10/16/23 10/16/23 magnesium hydroxide 400 mg/5 mL 400 mg PO DAILY PRN Constipation 10/16/23 10/16/23 oral suspension (Milk of Magnesia) ondansetron 4 mg disintegrating 4 mg PO Q6H PRN Nausea And Vomiting 10/16/23 10/16/23 tablet Allergies Allergy/AdvReac Type Severity Reaction Status Date / Time Iodinated Contrast Media Allergy Unknown Verified 06/14/23 06:23 metrizamide Allergy Unknown Verified 06/14/23 06:23 simvastatin Allergy Unknown Verified 06/14/23 06:23 [facility] Past Medical History Medical History (Updated 10/16/23 @ 16:25 by Alisa Joy PA-C) Dementia Depression Gastro-esophageal reflux disease without esophagitis Glaucoma Hyperlipidemia Hypertension Seizure disorder Surgical History Surgical History (Updated 10/16/23 @ 16:18 by Alisa Joy PA-C) Surgical history unknown Family History Family History Other Family history unknown Social History Social History (Updated 10/16/23 @ 16:20 by Alisa Joy PA-C) Social History: Emergency contact: Franci Vasques, spouse. Code status: Do not resuscitate, comfort focused treatment. Smoking status: Never smoker Alcohol intake: unknown Substance use: unknown Additional living arrangements comments: Resident at [facility]. Spiritual care concerns: No Exam Narrative: GENERAL: II-appearing, in no acute distress. HEAD: Normocephalic, atraumatic. EYES: Non injected, non icteric ENT: Nares clear, no rhinorrhea or epistaxis. Dry mucous membranes. CHEST: No respiratory distress. Airway patent. HEART: Regular rate and rhythm. . ABDOMEN: Soft, nondistended. Non tender to palpation. EXTREMITIES: Distal toes on right foot cool but otherwise bilateral feet grossly symmetric. SKIN: Warm, dry, no rash. NEURO: No focal deficits but not moving a lot. Alert to verbal stimuli. NOnverbal/not responding to questions. Course Vital Signs Vital signs: Vital Signs Temperature 98.9 F 10/16/23 12:52 Pulse Rate 98 10/16/23 12:52 Respiratory Rate 20 10/16/23 12:52 Blood Pressure 126/70 10/16/23 12:52 Pulse Oximetry 98 10/16/23 12:52 Oxygen Delivery Room Air 10/16/23 12:52 Temperature 97.8 F 10/18/23 07:44 Pulse Rate 74 10/18/23 08:00 Respiratory Rate 18 10/18/23 07:44 Blood Pressure 124/58 L 10/18/23 07:44 Pulse Oximetry 100 10/18/23 07:44 Oxygen Delivery Room Air 10/18/23 08:00 Fraction of Inspired Oxygen 21 10/18/23 03:53 MDM - Altered Mental Status MDM Narrative Medical decision making narrative: Patient presents with reported AMS/lethargy of 24 hours duration, from baseline A&O
--- NOTE | 2023-10-16 16:05 | PM.IMHP ---
H&P: HPI History of Present Illness Date/Time: 10/16/23 16:05 Chief Complaint: Altered mental status. Narrative: This is a 78-year-old male with dementia, seizure disorder, hypertension, hyperlipidemia, gastroesophageal reflux disease, depression, and glaucoma who presented to the emergency department via EMS from [facility] for evaluation of altered mental status. At baseline he is reportedly alert and oriented x 2 to 3; at the time my evaluation he is alert but does not answer questions or follow commands. There is not much history on this patient in the EMR and minimal information was provided by the transferring facility. I have attempted to call the patient's however go straight to voicemail. According to the triage note he has been lethargic since yesterday and today he was not answering questions or interacting and he was sent in for evaluation. There were no reports of fever, vomiting, diarrhea, or witnessed seizure activity. In the ED: He was afebrile on arrival with stable vital signs. Labs were significant for WBC count of 11.5, hemoglobin 13.3, MCV 104.8, platelet 168, sodium 165, potassium 3.5, chloride 127, carbon dioxide 25, anion gap 13, BUN 47, creatinine 1.30, glucose 122, total protein 7.0, albumin 3.6. Urine was positive for 2+ protein, trace ketones, 2+ leukocyte esterase, 51 to 100 RBC, 21 to 50 WBC, 4+ bacteria, and triple phosphate crystals. EKG showed sinus rhythm with occasional ectopy and T-wave abnormalities in the inferior and anterolateral leads which were not present on EKG in June 2023. He was started on D5 for hypernatremia and is being admitted in this setting for close monitoring and further evaluation and treatment. Review of Systems Review of Systems: Unable to obtain given clinical condition as detailed above. [facility] Past Medical History Medical History (Updated 10/16/23 @ 16:25 by Alisa Joy PA-C) Dementia Depression Gastro-esophageal reflux disease without esophagitis Glaucoma Hyperlipidemia Hypertension Seizure disorder Surgical History Surgical History (Updated 10/16/23 @ 16:18 by Alisa Joy PA-C) Surgical history unknown Family History Family History Other Family history unknown Social History Social History (Updated 10/16/23 @ 16:20 by Alisa Joy PA-C) Social History: Emergency contact: Franci Vasques, spouse. Code status: Do not resuscitate, comfort focused treatment. Smoking status: Unknown if ever smoked Alcohol intake: unknown Substance use: unknown Additional living arrangements comments: Resident at [facility]. Meds Home Medications and Allergies Home Medications Medication Instructions Recorded Confirmed Type amlodipine 10 mg tablet 10 mg DAILY 06/14/23 06/14/23 History atorvastatin 40 mg tablet 40 mg PO DAILY 06/14/23 06/14/23 History carbamazepine 300 mg 600 mg PO Q12H 06/14/23 06/14/23 History capsule,extended release [id number] donepezil 5 mg tablet 5 mg PO HS 06/14/23 06/14/23 History levetiracetam 1,000 mg tablet 2,000 mg PO HS 06/14/23 06/14/23 History levetiracetam 750 mg tablet 1,500 mg PO DAILY 06/14/23 06/14/23 History memantine 5 mg tablet 5 mg PO BID 06/14/23 06/14/23 History ciprofloxacin HCl 250 mg tablet 250 mg PO Q12H #14 tabs 07/01/23 Rx Allergies Allergy/AdvReac Type Severity Reaction Status Date / Time Iodinated Contrast Media Allergy Unknown Verified 06/14/23 06:23 metrizamide Allergy Unknown Verified 06/14/23 06:23 simvastatin Allergy Unknown Verified 06/14/23 06:23 Vital Signs Vital Signs - 24 hr 10/16/23 12:52 10/16/23 13:37 10/16/23 14:20 Temperature 98.9 F Pulse Rate 98 95 Respiratory Rate 20 20 Blood Pressure 126/70 137/61 Pulse Oximetry 98 99 Oxygen Delivery Room Air Room Air 10/16/23 15:20 Temperature Pulse Rate 90 Respiratory Rate 16 Blood Pressure 137/70 Pulse Oximetr
[2023-10-16] MEDS: DEXTROSE 5% 1,000 ML 1,000 ML 100 ML IV CONT (16:20)
--- NOTE | 2023-10-16 18:10 | ADMGEN ---
This patient, Isaiah Vasques, was admitted to IMU Room 204-01. Patient/family oriented to hospital policies and general routines including ID bracelet, bed and alarms, visiting hours, pain management, procedures, bathroom and other care routines, personal items, smoking policy, room service/diet, and visiting hours. Information on how to activate the Rapid Response Team has been discussed. Patient/Family are encouraged to report perceived risks to care and to ask questions if they do not understand what they are told or what they should do.
[2023-10-16 18:32] LABS: Creatinine Urine 73.5 mg/dL
[2023-10-16 18:37] LABS: Sodium Urine Random 26 meq/L
[2023-10-16 19:54] LABS: Anion Gap 11 mmol/L (4-12); Blood Urea Nitrogen 53 mg/dL (9-20); Calcium 8.4 mg/dL (8.4-10.2); Carbon Dioxide 28 mmol/L (22-30); Chloride 125 mmol/L (98-107); Estimated CRCL calculation 43 ml/min; Estimated Glomerular Filt Rate 53; Glucose 152 mg/dL (65-110); Potassium 3.6 mmol/L (3.4-5.0); Sodium 164 mmol/L (137-145)
[2023-10-16 20:04] LABS: Iron 61 ug/dL (49-181)
[2023-10-16 20:13] LABS: Percent Iron Saturation 40 % (20-50)
[2023-10-16 20:28] LABS: Troponin I 0.058 ng/mL (0.000-0.034)
[2023-10-16 20:36] LABS: Thyroid Stimulating Hormone Reflex 0.649 uIU/mL (0.465-4.68)
[2023-10-16 21:06] LABS: Folic Acid 3.2 ng/mL (2.76->20)
[2023-10-16] MEDS: levETIRAcetam 500 MG TABLET 2000 MG PO (22:10)
[2023-10-16] MEDS: DONEPEZIL HCL 5 MG TABLET PO (22:11)
[2023-10-16] MEDS: LATANOPROST 0.005% OP SOLN 2.5 ML BTL 1 DROP EACH EYE (22:11)
[2023-10-16] MEDS: MEMANTINE 5 MG TABLET PO (22:11)
[2023-10-16] MEDS: CARBAMAZEPINE XR 200 MG TAB.ER.12H 600 MG PO (22:12)
[2023-10-16 22:22] LABS: Sodium 162 mmol/L (137-145)
[2023-10-17] VITALS (17 sets, daily range): BP systolic 117–143; BP diastolic 57–69; PULSE 75–85; RESP 19–22; TEMP 36.1–37.2; O2SAT 97–100; BMI 23.8
--- NOTE | 2023-10-17 | ECHO_ITS ---
Patient Info Name: Isaiah Vasques Age: 78 years : 1945 Gender: Male Ht: 70 in Wt: 166 lbs BSA: 1.93 m2 HR: 83 bpm BP: 117 / 57 mmHg Heart Rhythm: Sinus Rhythm Technical Quality: Good Exam Date: 10/17/2023 8:51 AM Exam Location: Echo Lab Patient Status: Outpatient Admit Date: 10/16/2023 Staff Ordering Physician: Alisa Joy PA-C Title One Teacher: Krish Gunderson RDCS Attending Provider: Ani Wren MD Referring Physician: Benita COLLAZO; Exam Type: CA echo doppler color flow Study Info Indications - Encephalopathy - Abnormal EKG Complete two-dimensional, color flow and Doppler transthoracic echocardiogram is performed. Summary 1. Left ventricular chamber dimension is normal. 2. Left ventricular systolic function is lower limits of normal, estimated at 50-55%. 3. There is mildly increased left ventricular wall thickness. 4. The left ventricular diastolic function is grade I diastolic dysfunction. 5. Right ventricular systolic function is normal. 6. No significant valvular disease. Left Ventricle Left ventricular chamber dimension is normal. Left ventricular systolic function is lower limits of normal, estimated at 50-55%. There is mildly increased left ventricular wall thickness. The left ventricular diastolic function is grade I diastolic dysfunction. Right Ventricle Right ventricular chamber dimension is normal. Right ventricular systolic function is normal. Left Atria Left atrial chamber dimension is normal. Right Atria Right atrial chamber dimension is normal. Atrial Septum Intact interatrial septum visualized by color flow imaging. Aortic Valve The aortic valve is probable trileaflet. There is no aortic valve stenosis. There is no aortic valve regurgitation. There is mild aortic valve calcification. Pulmonic Valve The pulmonic valve is not well visualized. There is trace pulmonic regurgitation. Mitral Valve There is trace mitral valve regurgitation. Tricuspid Valve There is trace tricuspid valve regurgitation. Pericardium/Pleural There is no pericardial effusion. Inferior Vena Cava Normal inferior vena cava with >50% collapse upon inspiration consistent with normal right atrial pressure, 3 mmHg. Aorta The aortic root size at the sinus of Valsalva is normal. Left Ventricular Outflow Tract Name Value Normal LVOT 2D LVOT Diameter 2.1 cm LVOT Doppler LVOT Peak Gradient 4 mmHg LVOT Mean Gradient 2 mmHg LVOT VTI 14 cm LVOT VTI/AV VTI Ratio 0.6 LVOT Stroke Volume 47 ml LVOT CO 4.1 l/min LVOT CI 2.1 l/min/m2 Pulmonic Valve Name Value Normal PV Doppler PV Peak Gradient 6 mmHg PV Regurgitation Doppler
[2023-10-17 01:11] LABS: Sodium 159 mmol/L (137-145)
[2023-10-17 01:30] LABS: Troponin I 0.051 ng/mL (0.000-0.034)
[2023-10-17] MEDS: DEXTROSE 5% 1,000 ML 1,000 ML 100 ML IV CONT ×2 (02:56→11:50)
[2023-10-17 04:50] LABS: Basophils Percent Auto 0.4 % (0.2-1.2); Eosinophils Absolute Auto 0.2 K/mm3 (0-0.3); Eosinophils Percent Auto 1.7 % (0-4.4); Hematocrit 39.2 % (42.0-52.0); Hemoglobin 11.9 g/dL (14.0-18.0); Immature Granulocyte Absolute 0.05 K/mm3 (0.00-0.031); Immature Granulocyte Percent A 0.4 % (0-0.5); Lymphocytes Absolute Auto 0.78 K/mm3 (0.9-3.2); Mean Corpuscular HGB Conc 30.4 g/dl (32-36); Mean Corpuscular Hemoglobin 32.2 pg (26-34); Mean Corpuscular Volume 106.2 fl (80-100); Mean Platelet Volume 11.1 fl (7.4-10.4); Monocytes Absolute Auto 0.7 K/mm3 (0.1-0.6); Monocytes Percent Auto 6.6 % (2.6-8.5); Neutrophils Absolute Auto 9.4 K/mm3 (1.3-6.7); Neutrophils Percent Auto 83.9 % (45.5-73.1); Platelet Count Result 140 k/mm3 (150-375); Red Blood Count 3.69 M/mm3 (4.6-6.20); Red Cell Distribution Width 13.1 % (11.5-14.5); White Blood Count 11.2 K/mm3 (4.5-10.0)
[2023-10-17 05:03] LABS: Anion Gap 6 mmol/L (4-12); Blood Urea Nitrogen 52 mg/dL (9-20); Calcium 8.2 mg/dL (8.4-10.2); Carbon Dioxide 28 mmol/L (22-30); Chloride 124 mmol/L (98-107); Estimated CRCL calculation 46 ml/min; Estimated Glomerular Filt Rate 58; Glucose 168 mg/dL (65-110); Magnesium 3.1 mg/dL (1.6-2.3); Potassium 3.2 mmol/L (3.4-5.0); Sodium 158 mmol/L (137-145)
[2023-10-17] MEDS: ENOXAPARIN 40 MG/0.4 ML SYRINGE SUB-Q (09:00)
[2023-10-17 09:08] LABS: Levetiracetam Keppra 10.5 mcg/mL (6.0-46.0)
[2023-10-17 10:22] LABS: Sodium 158 mmol/L (137-145)
[2023-10-17] MEDS: POTASSIUM CHLORIDE INJ 40 MEQ in SODIUM CHLORIDE 0.9% IV 500 ML 130 MEQ IVPB (12:30)
[2023-10-17 14:35] LABS: Sodium 154 mmol/L (137-145)
--- NOTE | 2023-10-17 16:38 | PM.IMPN ---
Progress Note: A&P Assessment and Plan (1) Metabolic encephalopathy: Code(s): G93.41 - Metabolic encephalopathy Status: Acute Assessment and Plan: 10/17/23: Likely due to acute urinary tract infection verses hypernatremia Head CT was negative (2) Hypernatremia: Code(s): E87.0 - Hyperosmolality and hypernatremia Status: Acute Assessment and Plan: 10/17/23: Increase D5W to 125 ml per hour Continue to trend sodium Will check urine and serum osmolarity, and urine sodium (3) Urinary tract infection: Code(s): N39.0 - Urinary tract infection, site not specified Status: Acute Assessment and Plan: 10/17/23: UA showed 2+ urine protein, trace ketone, 2+ leukocyte, 51-100 urine RBC, 21-50 urine WBC, 4+ bacteria Urine culture pending Continue Rocephin (4) Macrocytic anemia: Code(s): D53.9 - Nutritional anemia, unspecified Status: Acute Assessment and Plan: 10/17/23: Hemoglobin 11.9, MCV 106.2 Iron level 61, ferritin 317, vitamin B12 437, folate 3.2 (5) Seizure disorder: Code(s): G40.909 - Epilepsy, unspecified, not intractable, without status epilepticus Status: Acute Assessment and Plan: 10/17/23: Will change Keppra to IV for now (6) Hypertension: Code(s): I10 - Essential (primary) hypertension Status: Acute Assessment and Plan: 10/17/23: Pressure ranging 117/57 to 126/57 Currently holding lisinopril and amlodipine due to mental status Time Spent With Patient Time with patient: Greater than 35 minutes Subjective Date/time seen: 10/17/23 16:38 Interval history: Interval history: This is a 78-year-old male who presented to the hospital on 10/16/2023 for evaluation of altered mental status. Patient was brought to the emergency room via EMS from [facility]. Patient's baseline orientation is alert and oriented times 2-3. Workup in the hospital included head CT which was negative for any acute intracranial findings. Initial labs showed a white blood cell count of 11.5, hemoglobin 13.3, sodium 165, chloride 127, EGFR 53, iron 61 ferritin 317, alk-phos 128, troponin 0.058> 0.050> 0.051, TSH 0.649. UA was obtained which showed 2+ urine protein, trace ketone, 2+ leukocytes, 51-100 urine RBCs, 21-50 urine WBC 4+ bacteria. Urine culture was obtained and is pending. Echocardiogram showed normal LV systolic function with an estimated EF of 50-55%, grade 1 diastolic dysfunction. Patient was started on Rocephin. 10/17/23: Patient is attended and will of wake briefly to voice. He is not following any commands. Labs today showed a white blood cell count of 11.2, hemoglobin 11.9, sodium 158 potassium 3.2, EGFR 58. Review of Systems Review of Systems: ROS unobtainable: Yes unobtainable due to mental status Exam Narrative: General: In no acute distress Head: atraumatic, no encephalopathy Eyes: EOMI, PERRLA, sclera clear ENT: moist mucous membranes, nasal passages clear Neck: supple, no JVD, no adenopathy, trachea midline Cardiac: Normal S1 and S2. RRR, No murmur, gallops or friction rubs, peripheral pulses intact. Respiratory: Lungs clear to auscultation, no adventitious lung sounds, currently on room air Gastrointestinal: soft, non-distended, non-tender, normoactive bowel sounds. : voiding without difficulty. Extremities: moves all extremities well, no edema Skin: clean, dry, intact. No wounds or lesions. Neuro: Will briefly awake to voice however is up trended and falls right back to sleep Psych: Unable to assess due to mental status Objective Data Vital Signs Vital Signs: Vital Signs - 24 hr 10/16/23 17:20 10/16/23 18:00 10/16/23 20:00 Temperature 97.7 F Pulse Rate 89 87 Respiratory Rate 20 Blood Pressure 123/62 Pulse Oximetry 100 Oxygen Delivery Room Air Fraction of Inspired Oxygen 10/16/23 20:00 10/16/23 20:00 10/16/23 22:00 Temperature Pulse Rate 86 86 7
[2023-10-17 18:52] LABS: Sodium 153 mmol/L (137-145)
[2023-10-17] MEDS: DEXTROSE 5% 1,000 ML 1,000 ML 125 ML IV CONT (20:17)
[2023-10-17] MEDS: levETIRAcetam 1000MG/NACL100ML 1,000 MG/100 ML BAG 400 MG IVPB ×2 (20:18→20:39)
[2023-10-17] MEDS: LATANOPROST 0.005% OP SOLN 2.5 ML BTL 1 DROP EACH EYE (20:19)
[2023-10-18] VITALS (13 sets, daily range): BP systolic 108–129; BP diastolic 45–70; PULSE 65–76; RESP 14–20; TEMP 36.6–37.2; O2SAT 96–100
[2023-10-18] MEDS: DEXTROSE 5% 1,000 ML 1,000 ML 125 ML IV CONT ×3 (04:46→21:40)
[2023-10-18 08:33] LABS: Osmolality, Urine 812 mOsm/kg (50-1200)
[2023-10-18] MEDS: ENOXAPARIN 40 MG/0.4 ML SYRINGE SUB-Q (08:47)
[2023-10-18] MEDS: levETIRAcetam 1500MG/NACL100ML 1,500 MG/100 ML BAG 600 MG IVPB (08:47)
[2023-10-18 09:39] LABS: Basophils Percent Auto 0.2 % (0.2-1.2); Eosinophils Absolute Auto 0.3 K/mm3 (0-0.3); Eosinophils Percent Auto 3.3 % (0-4.4); Hematocrit 32.5 % (42.0-52.0); Hemoglobin 10.1 g/dL (14.0-18.0); Immature Granulocyte Absolute 0.05 K/mm3 (0.00-0.031); Immature Granulocyte Percent A 0.6 % (0-0.5); Lymphocytes Absolute Auto 0.96 K/mm3 (0.9-3.2); Lymphocytes Percent Auto 10.8 % (18.3-44.2); Mean Corpuscular HGB Conc 31.1 g/dl (32-36); Mean Corpuscular Hemoglobin 32.2 pg (26-34); Mean Corpuscular Volume 103.5 fl (80-100); Mean Platelet Volume 11.5 fl (7.4-10.4); Monocytes Absolute Auto 0.6 K/mm3 (0.1-0.6); Monocytes Percent Auto 6.2 % (2.6-8.5); Neutrophils Percent Auto 78.9 % (45.5-73.1); Platelet Count Result 122 k/mm3 (150-375); Red Blood Count 3.14 M/mm3 (4.6-6.20); Red Cell Distribution Width 13.2 % (11.5-14.5); White Blood Count 8.9 K/mm3 (4.5-10.0)
[2023-10-18 10:04] LABS: Alanine Aminotransferase 10 U/L (6-50); Albumin Level 2.8 g/dL (3.5-5.1); Alkaline Phosphatase 75 U/L (38-126); Anion Gap 8 mmol/L (4-12); Aspartate Amino Transferase 27 U/L (17-59); Bilirubin,Total 0.5 mg/dL (0.2-1.3); Blood Urea Nitrogen 31 mg/dL (9-20); Calcium 7.3 mg/dL (8.4-10.2); Carbon Dioxide 24 mmol/L (22-30); Chloride 117 mmol/L (98-107); Estimated CRCL calculation 76 ml/min; Estimated Glomerular Filt Rate > 60; Glucose 123 mg/dL (65-110); Potassium 3.5 mmol/L (3.4-5.0); Sodium 149 mmol/L (137-145)
--- NOTE | 2023-10-18 14:08 | P.PNIM_ITS ---
Progress Note: A&P Assessment and Plan (1) Metabolic encephalopathy: Code(s): G93.41 - Metabolic encephalopathy Status: Acute Assessment and Plan: 10/17/23: * Likely due to acute urinary tract infection verses hypernatremia * Head CT was negative 10/18/23: * Continue neuro checks * Consider MRI no improvement (2) Hypernatremia: Code(s): E87.0 - Hyperosmolality and hypernatremia Status: Acute Assessment and Plan: 10/17/23: * Increase D5W to 125 ml per hour * Continue to trend sodium * Will check urine and serum osmolarity, and urine sodium 10/18/23: * Continue D5W at 125 mL/hr * Sodium down to 149 today * Urine and serum osmolarity and urine 50 pending (3) Urinary tract infection: Code(s): N39.0 - Urinary tract infection, site not specified Status: Acute Assessment and Plan: 10/17/23: * UA showed 2+ urine protein, trace ketone, 2+ leukocyte, 51-100 urine RBC, 21- 50 urine WBC, 4+ bacteria * Urine culture pending * Continue Rocephin 10/18/23: * Will continue Rocephin still mental status improves and then transition over to Augmentin * Your culture showing E coli (4) Macrocytic anemia: Code(s): D53.9 - Nutritional anemia, unspecified Status: Acute Assessment and Plan: 10/17/23: * Hemoglobin 11.9, MCV 106.2 * Iron level 61, ferritin 317, vitamin B12 437, folate 3.2 10/18/23: * Hemoglobin 10.1 (5) Seizure disorder: Code(s): G40.909 - Epilepsy, unspecified, not intractable, without status epilepticus Status: Acute Assessment and Plan: 10/17/23: * Will change Keppra to IV for now 10/18/23: * No change to current treatment plan (6) Hypertension: Code(s): I10 - Essential (primary) hypertension Status: Acute Assessment and Plan: 10/17/23: * Pressure ranging 117/57 to 126/57 * Currently holding lisinopril and amlodipine due to mental status 10/18/23: * No change to current treatment plan Time Spent With Patient Time with patient: 25 - 35 minutes Subjective Date/time seen: 10/18/23 14:08 Interval history: Interval history: This is a 78-year-old male who presented to the hospital on 10/16/2023 for evaluation of altered mental status. Patient was brought to the emergency room via EMS from [facility]. Patient's baseline orientation is alert and oriented times 2-3. Workup in the hospital included head CT which was negative for any acute intracranial findings. Initial labs showed a white blood cell count of 11.5, hemoglobin 13.3, sodium 165, chloride 127, EGFR 53, iron 61 ferritin 317, alk-phos 128, troponin 0.058> 0.050> 0.051, TSH 0.649. UA was obtained which showed 2+ urine protein, trace ketone, 2+ leukocytes, 51-100 urine RBCs, 21-50 urine WBC 4+ bacteria. Urine culture was obtained and is pending. Echocardiogram showed normal LV systolic function with an estimated EF of 50-55%, grade 1 diastolic dysfunction. Patient was started on Rocephin. 10/17/23: Patient is obtunded and will wake briefly to voice. He is not following any commands. Labs today showed a white blood cell count of 11.2, hemoglobin 11.9, sodium 158 potassium 3.2, EGFR 58. 10/18/23: Patient remains obtunded however will wake to voice. He is answering questions today which is much improved from yesterday. Review of Systems Review of Systems: Unable to obtain given clinical condition as detailed above. ROS unobtainable: Yes unobtainable due to mental status Exam Na
--- NOTE | 2023-10-18 14:08 | PM.IMPN ---
Progress Note: A&P Assessment and Plan (1) Metabolic encephalopathy: Code(s): G93.41 - Metabolic encephalopathy Status: Acute Assessment and Plan: 10/17/23: Likely due to acute urinary tract infection verses hypernatremia Head CT was negative 10/18/23: Continue neuro checks Consider MRI no improvement (2) Hypernatremia: Code(s): E87.0 - Hyperosmolality and hypernatremia Status: Acute Assessment and Plan: 10/17/23: Increase D5W to 125 ml per hour Continue to trend sodium Will check urine and serum osmolarity, and urine sodium 10/18/23: Continue D5W at 125 mL/hr Sodium down to 149 today Urine and serum osmolarity and urine 50 pending (3) Urinary tract infection: Code(s): N39.0 - Urinary tract infection, site not specified Status: Acute Assessment and Plan: 10/17/23: UA showed 2+ urine protein, trace ketone, 2+ leukocyte, 51-100 urine RBC, 21-50 urine WBC, 4+ bacteria Urine culture pending Continue Rocephin 10/18/23: Will continue Rocephin still mental status improves and then transition over to Augmentin Your culture showing E coli (4) Macrocytic anemia: Code(s): D53.9 - Nutritional anemia, unspecified Status: Acute Assessment and Plan: 10/17/23: Hemoglobin 11.9, MCV 106.2 Iron level 61, ferritin 317, vitamin B12 437, folate 3.2 10/18/23: Hemoglobin 10.1 (5) Seizure disorder: Code(s): G40.909 - Epilepsy, unspecified, not intractable, without status epilepticus Status: Acute Assessment and Plan: 10/17/23: Will change Keppra to IV for now 10/18/23: No change to current treatment plan (6) Hypertension: Code(s): I10 - Essential (primary) hypertension Status: Acute Assessment and Plan: 10/17/23: Pressure ranging 117/57 to 126/57 Currently holding lisinopril and amlodipine due to mental status 10/18/23: No change to current treatment plan Time Spent With Patient Time with patient: 25 - 35 minutes Subjective Date/time seen: 10/18/23 14:08 Interval history: Interval history: This is a 78-year-old male who presented to the hospital on 10/16/2023 for evaluation of altered mental status. Patient was brought to the emergency room via EMS from [facility]. Patient's baseline orientation is alert and oriented times 2-3. Workup in the hospital included head CT which was negative for any acute intracranial findings. Initial labs showed a white blood cell count of 11.5, hemoglobin 13.3, sodium 165, chloride 127, EGFR 53, iron 61 ferritin 317, alk-phos 128, troponin 0.058> 0.050> 0.051, TSH 0.649. UA was obtained which showed 2+ urine protein, trace ketone, 2+ leukocytes, 51-100 urine RBCs, 21-50 urine WBC 4+ bacteria. Urine culture was obtained and is pending. Echocardiogram showed normal LV systolic function with an estimated EF of 50-55%, grade 1 diastolic dysfunction. Patient was started on Rocephin. 10/17/23: Patient is obtunded and will wake briefly to voice. He is not following any commands. Labs today showed a white blood cell count of 11.2, hemoglobin 11.9, sodium 158 potassium 3.2, EGFR 58. /: Patient remains obtunded however will wake to voice. He is answering questions today which is much improved from yesterday. Review of Systems Review of Systems: Unable to obtain given clinical condition as detailed above. ROS unobtainable: Yes unobtainable due to mental status Exam Narrative: General: In no acute distress Cardiac: Normal S1 and S2. RRR, No murmur, gallops or friction rubs, peripheral pulses intact. Respiratory: Lungs clear to auscultation, no adventitious lung sounds, currently on room air Gastrointestinal: soft, non-distended, non-tender, normoactive bowel sounds. : voiding without difficulty. Neuro: obtunded, will weeks to voice and will answer a few questions before falling back to sleep Psych: Unable to assess due to mental status
--- NOTE | 2023-10-18 14:43 | PC.NURSE ---
Pt transferred to room 312 via bed. Report given to ISAIAS Chilel. Pt's informed of transfer.
--- NOTE | 2023-10-18 15:20 | PC.NURSE ---
Transfer received per hospital bed from IMU.
[2023-10-18 20:54] LABS: Carbamazepine Tegretol 9.5 mcg/mL (4.0-12.0)
[2023-10-18] MEDS: LATANOPROST 0.005% OP SOLN 2.5 ML BTL 1 DROP EACH EYE (21:00)
[2023-10-18] MEDS: levETIRAcetam 1000MG/NACL100ML 1,000 MG/100 ML BAG 400 MG IVPB ×2 (21:32→21:33)
[2023-10-19] MEDS: DEXTROSE 5% 1,000 ML 1,000 ML 125 ML IV CONT (05:43)
[2023-10-19 06:12] VITALS: BP 148/67; PULSE 66; RESP 12; TEMP 36.7; O2SAT 100
[2023-10-19 06:50] LABS: Basophils Percent Auto 0.4 % (0.2-1.2); Eosinophils Absolute Auto 0.3 K/mm3 (0-0.3); Eosinophils Percent Auto 3.5 % (0-4.4); Hematocrit 36.2 % (42.0-52.0); Hemoglobin 10.3 g/dL (14.0-18.0); Immature Granulocyte Absolute 0.04 K/mm3 (0.00-0.031); Immature Granulocyte Percent A 0.5 % (0-0.5); Immature Platelet Fraction Pct 6.4 % (0.9-11.2); Lymphocytes Absolute Auto 0.99 K/mm3 (0.9-3.2); Lymphocytes Percent Auto 13.5 % (18.3-44.2); Mean Corpuscular HGB Conc 28.5 g/dl (32-36); Mean Corpuscular Hemoglobin 32.1 pg (26-34); Mean Corpuscular Volume 112.8 fl (80-100); Mean Platelet Volume 11.8 fl (7.4-10.4); Monocytes Absolute Auto 0.7 K/mm3 (0.1-0.6); Monocytes Percent Auto 9.3 % (2.6-8.5); Neutrophils Absolute Auto 5.3 K/mm3 (1.3-6.7); Neutrophils Percent Auto 72.8 % (45.5-73.1); Platelet Count Result 110 k/mm3 (150-375); Red Blood Count 3.21 M/mm3 (4.6-6.20); Red Cell Distribution Width 12.5 % (11.5-14.5); White Blood Count 7.3 K/mm3 (4.5-10.0)
[2023-10-19 07:55] LABS: Alanine Aminotransferase 10 U/L (6-50); Albumin Level 2.4 g/dL (3.5-5.1); Alkaline Phosphatase 70 U/L (38-126); Anion Gap 8 mmol/L (4-12); Aspartate Amino Transferase 25 U/L (17-59); Bilirubin,Total 0.6 mg/dL (0.2-1.3); Blood Urea Nitrogen 18 mg/dL (9-20); Calcium 6.4 mg/dL (8.4-10.2); Carbon Dioxide 20 mmol/L (22-30); Chloride 102 mmol/L (98-107); Estimated CRCL calculation 88 ml/min; Estimated Glomerular Filt Rate > 60; Glucose 460 mg/dL (65-110); Potassium 2.9 mmol/L (3.4-5.0); Sodium 130 mmol/L (137-145)
[2023-10-19 08:27] LABS: Platelet Estimate Slightly Decreased (Adequate)
[2023-10-19 08:27] LABS: Glucose Point of Care 114 mg/dl (65-105)
[2023-10-19 08:28] LABS: Hypochromasia 1+; Macrocytosis 1+ (NORMAL); Schistocytes None Seen
[2023-10-19] MEDS: ENOXAPARIN 40 MG/0.4 ML SYRINGE SUB-Q (08:37)
[2023-10-19] MEDS: levETIRAcetam 1500MG/NACL100ML 1,500 MG/100 ML BAG 600 MG IVPB (08:39)
[2023-10-19] MEDS: lisinopriL 20 MG TABLET PO (08:40)
[2023-10-19] MEDS: MEMANTINE 5 MG TABLET PO ×2 (08:40→20:45)
[2023-10-19] MEDS: ATORVASTATIN 40 MG TABLET PO (08:40)
[2023-10-19] MEDS: amLODIPine BESYLATE 10 MG TABLET PO (08:40)
[2023-10-19] MEDS: CARBAMAZEPINE XR 200 MG TAB.ER.12H 600 MG PO ×2 (08:40→20:45)
--- NOTE | 2023-10-19 09:33 | P.PNIM_ITS ---
Progress Note: A&P Assessment and Plan (1) Metabolic encephalopathy: Code(s): G93.41 - Metabolic encephalopathy Status: Acute Assessment and Plan: 10/17/23: * Likely due to acute urinary tract infection verses hypernatremia * Head CT was negative 10/18/23: * Continue neuro checks * Consider MRI no improvement 10/19/23: * Awake and alert today, answers some yes/no questions, however he is slow to respond and has blank stare * Will get MRI today. (2) Hypernatremia: Code(s): E87.0 - Hyperosmolality and hypernatremia Status: Acute Assessment and Plan: 10/17/23: * Increase D5W to 125 ml per hour * Continue to trend sodium * Will check urine and serum osmolarity, and urine sodium 10/18/23: * Continue D5W at 125 mL/hr * Sodium down to 149 today * Urine and serum osmolarity and urine sodium pending 10/19/23: * Discontinue D5W * Sodium 140 * Urine osmolarity 812, urine sodium 26, serum osmolarity pending (3) Urinary tract infection: Code(s): N39.0 - Urinary tract infection, site not specified Status: Acute Assessment and Plan: 10/17/23: * UA showed 2+ urine protein, trace ketone, 2+ leukocyte, 51-100 urine RBC, 21- 50 urine WBC, 4+ bacteria * Urine culture pending * Continue Rocephin 10/18/23: * Will continue Rocephin still mental status improves and then transition over to Augmentin * Your culture showing E coli 10/19/23: * Final culture read showing Proteus mirabilis * Continue Rocephin for now (4) Macrocytic anemia: Code(s): D53.9 - Nutritional anemia, unspecified Status: Acute Assessment and Plan: 10/17/23: * Hemoglobin 11.9, MCV 106.2 * Iron level 61, ferritin 317, vitamin B12 437, folate 3.2 10/18/23: * Hemoglobin 10.1 10/19/23: * No change (5) Seizure disorder: Code(s): G40.909 - Epilepsy, unspecified, not intractable, without status epilepticus Status: Acute Assessment and Plan: 10/17/23: * Will change Keppra to IV for now 10/18/23: * No change to current treatment plan (6) Hypertension: Code(s): I10 - Essential (primary) hypertension Status: Acute Assessment and Plan: 10/17/23: * Pressure ranging 117/57 to 126/57 * Currently holding lisinopril and amlodipine due to mental status 10/18/23: * No change to current treatment plan Time Spent With Patient Time with patient: Greater than 35 minutes Subjective Date/time seen: 10/19/23 09:33 Interval history: Interval history: This is a 78-year-old male who presented to the hospital on 10/16/2023 for evaluation of altered mental status. Patient was brought to the emergency room via EMS from [facility]. Patient's baseline orientation is alert and oriented times 2-3. Workup in the hospital included head CT which was negative for any acute intracranial findings. Initial labs showed a white blood cell count of 11.5, hemoglobin 13.3, sodium 165, chloride 127, EGFR 53, iron 61 ferritin 317, alk-phos 128, troponin 0.058> 0.050> 0.051, TSH 0.649. UA was obtained which showed 2+ urine protein, trace ketone, 2+ leukocytes, 51-100 urine RBCs, 21-50 urine WBC 4+ bacteria. Urine culture was obtained and is pending. Echocardiogram showed normal LV systolic function with an estimated EF of 50-55%, grade 1 diastolic dysfunction. Patient was started on Rocephin. 10/17/23: Patient is obtunded and will wake briefly to voice. He is not following any commands. Labs today showed a white blood cell count of 11.2,
--- NOTE | 2023-10-19 09:33 | PM.IMPN ---
Progress Note: A&P Assessment and Plan (1) Metabolic encephalopathy: Code(s): G93.41 - Metabolic encephalopathy Status: Acute Assessment and Plan: 10/17/23: Likely due to acute urinary tract infection verses hypernatremia Head CT was negative 10/18/23: Continue neuro checks Consider MRI no improvement 10/19/23: Awake and alert today, answers some yes/no questions, however he is slow to respond and has blank stare Will get MRI today. (2) Hypernatremia: Code(s): E87.0 - Hyperosmolality and hypernatremia Status: Acute Assessment and Plan: 10/17/23: Increase D5W to 125 ml per hour Continue to trend sodium Will check urine and serum osmolarity, and urine sodium 10/18/23: Continue D5W at 125 mL/hr Sodium down to 149 today Urine and serum osmolarity and urine sodium pending 10/19/23: Discontinue D5W Sodium 140 Urine osmolarity 812, urine sodium 26, serum osmolarity pending (3) Urinary tract infection: Code(s): N39.0 - Urinary tract infection, site not specified Status: Acute Assessment and Plan: 10/17/23: UA showed 2+ urine protein, trace ketone, 2+ leukocyte, 51-100 urine RBC, 21-50 urine WBC, 4+ bacteria Urine culture pending Continue Rocephin 10/18/23: Will continue Rocephin still mental status improves and then transition over to Augmentin Your culture showing E coli 10/19/23: Final culture read showing Proteus mirabilis Continue Rocephin for now (4) Macrocytic anemia: Code(s): D53.9 - Nutritional anemia, unspecified Status: Acute Assessment and Plan: 10/17/23: Hemoglobin 11.9, MCV 106.2 Iron level 61, ferritin 317, vitamin B12 437, folate 3.2 10/18/23: Hemoglobin 10.1 10/19/23: No change (5) Seizure disorder: Code(s): G40.909 - Epilepsy, unspecified, not intractable, without status epilepticus Status: Acute Assessment and Plan: 10/17/23: Will change Keppra to IV for now 10/18/23: No change to current treatment plan (6) Hypertension: Code(s): I10 - Essential (primary) hypertension Status: Acute Assessment and Plan: 10/17/23: Pressure ranging 117/57 to 126/57 Currently holding lisinopril and amlodipine due to mental status 10/18/23: No change to current treatment plan Time Spent With Patient Time with patient: Greater than 35 minutes Subjective Date/time seen: 10/19/23 09:33 Interval history: Interval history: This is a 78-year-old male who presented to the hospital on 10/16/2023 for evaluation of altered mental status. Patient was brought to the emergency room via EMS from [facility]. Patient's baseline orientation is alert and oriented times 2-3. Workup in the hospital included head CT which was negative for any acute intracranial findings. Initial labs showed a white blood cell count of 11.5, hemoglobin 13.3, sodium 165, chloride 127, EGFR 53, iron 61 ferritin 317, alk-phos 128, troponin 0.058> 0.050> 0.051, TSH 0.649. UA was obtained which showed 2+ urine protein, trace ketone, 2+ leukocytes, 51-100 urine RBCs, 21-50 urine WBC 4+ bacteria. Urine culture was obtained and is pending. Echocardiogram showed normal LV systolic function with an estimated EF of 50-55%, grade 1 diastolic dysfunction. Patient was started on Rocephin. 10/17/23: Patient is obtunded and will wake briefly to voice. He is not following any commands. Labs today showed a white blood cell count of 11.2, hemoglobin 11.9, sodium 158 potassium 3.2, EGFR 58. 10/18/23: Patient remains obtunded however will wake to voice. He is answering questions today which is much improved from yesterday. 10/19/23: Patient is alert and awake, will answer some yes/no questions, however minimal interaction. Review of Systems Review of Systems: Unable to obtain given clinical condition as detailed above. ROS unobtainable: Yes unobtainable due to mental status Exam Narrative: Genera
[2023-10-19 12:20] LABS: Alanine Aminotransferase 12 U/L (6-50); Albumin Level 2.9 g/dL (3.5-5.1); Alkaline Phosphatase 89 U/L (38-126); Anion Gap 6 mmol/L (4-12); Aspartate Amino Transferase 30 U/L (17-59); Bilirubin,Total 0.5 mg/dL (0.2-1.3); Blood Urea Nitrogen 17 mg/dL (9-20); Calcium 7.5 mg/dL (8.4-10.2); Carbon Dioxide 26 mmol/L (22-30); Chloride 108 mmol/L (98-107); Estimated CRCL calculation 67 ml/min; Estimated Glomerular Filt Rate > 60; Glucose 104 mg/dL (65-110); Potassium 3.3 mmol/L (3.4-5.0); Sodium 140 mmol/L (137-145)
--- NOTE | 2023-10-19 13:14 | PCNFU ---
Nutrition Follow-Up Complete: Severe protein calorie malnutrition related to chronic dementia as evidenced by weight loss 14%/3 months; intakes <75% needs >1 month; moderate muscle wasting to temporalis, clavicles, shoulders Goal: Advance diet as medically able Improve PO intake when diet advanced Patient has limited progress towards goal. We will continue current goal. Pt current nutrition is NPO. Nutrition recommendation: advance diet as tolerated per MD orders with Ensure Compact BID. Last recorded weight is 82 kg. up from 75.5 kg on admit. Bowel Motility: +BM reported 10/17 Labs Reviewed: Glu 114, Cr 0.6,NA 130, K 2.9, Alb 2.4 Meds Noted:Lovenox, Keppra, Rocephin. Skin: WNL Additional Notes: Patient remains NPO. Plans for possible diet advancement after MRI today. Recommend advancing diet as tolerated per MD orders with Ensure compact BID. Monitoring diet orders, weights, labs, plan of care Follow up in 3 days
[2023-10-19 14:22] VITALS: BP 115/50; PULSE 65; RESP 16; TEMP 36.6; O2SAT 100
[2023-10-19] MEDS: POTASSIUM CHLORIDE 20 MEQ PACKET (FOR LIQUID) PO (14:46)
[2023-10-19] MEDS: ASPIRIN 81 MG ENTERIC TABLET PO (14:46)
[2023-10-19 16:00] VITALS: PULSE 75
[2023-10-19] MEDS: DEXTROSE 5%/0.45% SOD CHL 1,000 ML 100 ML IV CONT ×2 (16:59→20:45)
--- NOTE | 2023-10-19 17:11 | PC.NURSE ---
Left voice message for Franci, patient's , regarding CTA consent at 16:30. Awaiting call back.
--- NOTE | 2023-10-19 17:51 | PC.NURSE ---
Addendum entered by Leslie Veliz RN 10/19/23 18:01: CTA 13 hour dose given at 18:00, 7 hour dose to be given at 00:00, and 1 hour dose to be given at 06:00. CTA ready to be performed at 07:00 on 10/20/23. CT scan called and updated with this time. Original Note: Spoke with Dr. Velasquez about obtain orderings for CT scan prep. Ok to put in orders for CT prep (prednisone 50 + benadryl 50mg at 13 hours, 7 hours, and 1 hour). Obtained consent from patient's Franci and placed consent on chart. Prep for CTA to begin at 18:00 to start 13 hour dose. 7 hour dose at 01:00. 1 hour dose at 07:00. Pt will be ready for his CTA at 08:00 on 10/20/23. CT scan called and is aware.
[2023-10-19] MEDS: predniSONE 40 MG, predniSONE 10 MG 50 MG PO (18:01)
[2023-10-19 18:44] LABS: Glucose Point of Care 116 mg/dl (65-105)
[2023-10-19 20:00] VITALS: PULSE 70; PULSE 75; RESP 14; O2SAT 98
[2023-10-19] MEDS: APIXABAN 5 MG TABLET PO (20:45)
[2023-10-19] MEDS: DONEPEZIL HCL 5 MG TABLET PO (20:45)
[2023-10-19] MEDS: ACETAMINOPHEN 325 MG TABLET 650 MG PO (20:45)
[2023-10-19] MEDS: levETIRAcetam 1000MG/NACL100ML 1,000 MG/100 ML BAG 400 MG IVPB ×2 (20:46)
[2023-10-19] MEDS: LATANOPROST 0.005% OP SOLN 2.5 ML BTL 1 DROP EACH EYE (20:47)
[2023-10-19 21:04] VITALS: BP 116/42; PULSE 71; RESP 12; TEMP 37.3; O2SAT 98
[2023-10-19 23:21] LABS: Glucose Point of Care 143 mg/dl (65-105)
[2023-10-20] VITALS (7 sets, daily range): BP systolic 135–136; BP diastolic 62–66; PULSE 54–69; RESP 12–16; TEMP 36.1–36.6; O2SAT 100
--- NOTE | 2023-10-20 | ECHO_ITS ---
Patient Info Name: Isaiah Vasques Age: 78 years : 1945 Gender: Male Ht: 70 in Wt: 184 lbs BSA: 2.04 m2 HR: 69 bpm BP: 136 / 66 mmHg Technical Quality: Good Exam Date: 10/20/2023 8:19 AM Exam Location: Echo Lab Patient Status: Inpatient Admit Date: 10/17/2023 Staff Ordering Physician: Sandra Brower APRN Manager Of Software Development: Krish Gunderson RDCS Attending Provider: Ani Wren MD Referring Physician: Inocente GOODWIN; Exam Type: CA echo limited w bubble study Study Info Indications - new stroke Complete two-dimensional, color flow and Doppler transthoracic echocardiogram is performed with agitated saline. Contrast/Agitated Saline Contrast/Ag. Saline: Agitated Saline Amount: 18.00 ml Existing IV Access: Yes Summary 1. Left ventricular systolic function is normal with an estimated ejection fraction of 60.0 %. 2. No patent ovale evident (PFO) by agitated saline imaging. Left Ventricle Left ventricular chamber dimension is normal. Left ventricular wall thickness is normal. Left ventricular systolic function is normal with an estimated ejection fraction of 60.0 %. Right Ventricle Right ventricle chamber size are normal. Atrial Septum No patent ovale evident (PFO) by agitated saline imaging. Report Signatures
[2023-10-20] MEDS: predniSONE 10 MG TABLET 50 MG PO ×2 (00:50→06:48)
[2023-10-20 05:39] LABS: Glucose Point of Care 145 mg/dl (65-105)
[2023-10-20 06:27] LABS: Basophils Percent Auto 0.2 % (0.2-1.2); Hematocrit 34.4 % (42.0-52.0); Hemoglobin 11.3 g/dL (14.0-18.0); Immature Granulocyte Absolute 0.05 K/mm3 (0.00-0.031); Immature Granulocyte Percent A 0.8 % (0-0.5); Lymphocytes Absolute Auto 0.37 K/mm3 (0.9-3.2); Lymphocytes Percent Auto 5.6 % (18.3-44.2); Mean Corpuscular HGB Conc 32.8 g/dl (32-36); Mean Corpuscular Hemoglobin 32.5 pg (26-34); Mean Corpuscular Volume 98.9 fl (80-100); Mean Platelet Volume 11.2 fl (7.4-10.4); Monocytes Absolute Auto 0.2 K/mm3 (0.1-0.6); Monocytes Percent Auto 3.3 % (2.6-8.5); Neutrophils Absolute Auto 5.9 K/mm3 (1.3-6.7); Neutrophils Percent Auto 90.1 % (45.5-73.1); Platelet Count Result 153 k/mm3 (150-375); Red Blood Count 3.48 M/mm3 (4.6-6.20); Red Cell Distribution Width 12.8 % (11.5-14.5); White Blood Count 6.6 K/mm3 (4.5-10.0)
[2023-10-20 06:44] LABS: Alanine Aminotransferase 14 U/L (6-50); Albumin Level 3.2 g/dL (3.5-5.1); Alkaline Phosphatase 88 U/L (38-126); Anion Gap 8 mmol/L (4-12); Aspartate Amino Transferase 31 U/L (17-59); Bilirubin,Total 0.5 mg/dL (0.2-1.3); Blood Urea Nitrogen 19 mg/dL (9-20); Calcium 7.6 mg/dL (8.4-10.2); Carbon Dioxide 25 mmol/L (22-30); Chloride 108 mmol/L (98-107); Estimated CRCL calculation 67 ml/min; Estimated Glomerular Filt Rate > 60; Glucose 180 mg/dL (65-110); Potassium 4.1 mmol/L (3.4-5.0); Sodium 141 mmol/L (137-145)
[2023-10-20] MEDS: diphenhydrAMINE HCl CAP 25 MG CAPSULE 50 MG PO (06:48)
[2023-10-20 07:26] LABS: Hypochromasia 1+; Platelet Estimate Adequate (Adequate); Poikilocytosis 1+; Schistocytes None Seen
--- NOTE | 2023-10-20 07:29 | P.PNIM_ITS ---
Progress Note: A&P Assessment and Plan (1) Acute stroke due to ischemia: Code(s): I63.9 - Cerebral infarction, unspecified Status: Acute Assessment and Plan: 10/20/23: * Head CT was negative for any acute intracranial process only showed old infarcts and age-related changes * MRI of the brain showed acute small lacunar infarct in the left thalamus, few additional small old periventricular lacunar infarcts in the left frontal, right parietal, and right peritrigonal white matter which is more extensive periventricular predominant white matter T2 hyperintensity consistent with chronic small-vessel ischemic disease * Head and neck CTA showed 66% moderate stenosis of the right internal carotid artery and 60% moderate stenosis on the left, chronic age-related changes, large pulmonary embolism of the left pulmonary artery involving main as well as upper and lower lobe pulmonary arteries, large thrombus burden * Unknown last known well, normally alert and oriented times 2-3 at baseline * Continue neuro checks q.4 hour * PT/OT/speech ordered * NPO except for sips with meds, will need a swallow study verses modified barium swallow * Continue Eliquis 5 mg b.i.d. * Increased atorvastatin 80 mg daily, started on aspirin * Will get another echo today to look for right heart strain * Continuous telemetry monitoring * Neurology consulted * Spoke with Dr. Mayo neurologist at [facility] as we did not have neurology servic es yesterday. He recommended the repeat echo, CTA of brain and carotid. * Case coordination consulted for hospice care (2) Pulmonary embolism: Code(s): I26.99 - Other pulmonary embolism without acute cor pulmonale Status: Acute Assessment and Plan: 10/20/23: * Head and neck CTA showed 66% moderate stenosis of the right internal carotid artery and 60% moderate stenosis on the left, chronic age-related changes, large pulmonary embolism of the left pulmonary artery involving main as well as upper and lower lobe pulmonary arteries, large thrombus burden * Continue Eliquis 5 mg b.i.d. * Will repeat echo to assess for right heart strain * Last echo on 10/17/2023 shown lower limits of normal LV systolic function with an estimated EF of 50-55%, grade 1 diastolic dysfunction. * Will get venous Doppler study as well * Case coordination consult for hospice care (3) DVT (deep venous thrombosis): Code(s): I82.409 - Acute embolism and thrombosis of unspecified deep veins of unspecified lower extremity Status: Acute Assessment and Plan: 10/20/23: * Venous Doppler today showed extensive deep vein thrombosis of the left lower extremity including the left popliteal, posterior tibial, peroneal, and gastrocnemius veins * Patient currently on Eliquis 5 mg b.i.d. (4) Metabolic encephalopathy: Code(s): G93.41 - Metabolic encephalopathy Status: Acute Assessment and Plan: 10/17/23: * Likely due to acute urinary tract infection verses hypernatremia versus stroke * Head CT was negative 10/18/23: * Continue neuro checks * Consider MRI no improvement 10/19/23: * Awake and alert today, answers some yes/no questions, however he is slow to respond and has blank stare * Will get MRI today. 10/20/23: * MRI of the brain showed acute small lacunar infarct in the left thalamus, few additional small old periventricular lacunar infarcts in the left frontal, right parietal, and right peritrigonal white matter which is more extensive periventricular predominant white matter T2 hyperintensity consistent with chronic small-vessel ischemic disease * Head and neck CTA show
--- NOTE | 2023-10-20 07:29 | PM.IMPN ---
Progress Note: A&P Assessment and Plan (1) Acute stroke due to ischemia: Code(s): I63.9 - Cerebral infarction, unspecified Status: Acute Assessment and Plan: 10/20/23: Head CT was negative for any acute intracranial process only showed old infarcts and age-related changes MRI of the brain showed acute small lacunar infarct in the left thalamus, few additional small old periventricular lacunar infarcts in the left frontal, right parietal, and right peritrigonal white matter which is more extensive periventricular predominant white matter T2 hyperintensity consistent with chronic small-vessel ischemic disease Head and neck CTA showed 66% moderate stenosis of the right internal carotid artery and 60% moderate stenosis on the left, chronic age-related changes, large pulmonary embolism of the left pulmonary artery involving main as well as upper and lower lobe pulmonary arteries, large thrombus burden Unknown last known well, normally alert and oriented times 2-3 at baseline Continue neuro checks q.4 hour PT/OT/speech ordered NPO except for sips with meds, will need a swallow study verses modified barium swallow Continue Eliquis 5 mg b.i.d. Increased atorvastatin 80 mg daily, started on aspirin Will get another echo today to look for right heart strain Continuous telemetry monitoring Neurology consulted Spoke with Dr. Mayo neurologist at [facility] as we did not have neurology services yesterday. He recommended the repeat echo, CTA of brain and carotid. Case coordination consulted for hospice care (2) Pulmonary embolism: Code(s): I26.99 - Other pulmonary embolism without acute cor pulmonale Status: Acute Assessment and Plan: 10/20/23: Head and neck CTA showed 66% moderate stenosis of the right internal carotid artery and 60% moderate stenosis on the left, chronic age-related changes, large pulmonary embolism of the left pulmonary artery involving main as well as upper and lower lobe pulmonary arteries, large thrombus burden Continue Eliquis 5 mg b.i.d. Will repeat echo to assess for right heart strain Last echo on 10/17/2023 shown lower limits of normal LV systolic function with an estimated EF of 50-55%, grade 1 diastolic dysfunction. Will get venous Doppler study as well Case coordination consult for hospice care (3) DVT (deep venous thrombosis): Code(s): I82.409 - Acute embolism and thrombosis of unspecified deep veins of unspecified lower extremity Status: Acute Assessment and Plan: 10/20/23: Venous Doppler today showed extensive deep vein thrombosis of the left lower extremity including the left popliteal, posterior tibial, peroneal, and gastrocnemius veins Patient currently on Eliquis 5 mg b.i.d. (4) Metabolic encephalopathy: Code(s): G93.41 - Metabolic encephalopathy Status: Acute Assessment and Plan: 10/17/23: Likely due to acute urinary tract infection verses hypernatremia versus stroke Head CT was negative 10/18/23: Continue neuro checks Consider MRI no improvement 10/19/23: Awake and alert today, answers some yes/no questions, however he is slow to respond and has blank stare Will get MRI today. 10/20/23: MRI of the brain showed acute small lacunar infarct in the left thalamus, few additional small old periventricular lacunar infarcts in the left frontal, right parietal, and right peritrigonal white matter which is more extensive periventricular predominant white matter T2 hyperintensity consistent with chronic small-vessel ischemic disease Head and neck CTA showed 66% moderate stenosis of the right internal carotid artery and 60% moderate stenosis on the left, chronic age-related changes, large pulmonary embolism of the left pulmonary artery involving main as well as upper and lower lobe pulmonary arteries, large thrombus burden Case coordination consulted for hospice care (5) Hypernatremia: Code(s): E87.0 - Hyperosmolality and hypern
--- NOTE | 2023-10-20 09:13 | PC.NURSE ---
Sandra Brower BUNDLER notified of patient positive for PE on ct scan this am
--- NOTE | 2023-10-20 09:19 | PCSTNOTE ---
ST attempted bedside swallow evaluation this morning (9:15am). Pt. sleeping soundly and would not alert to name and gentle touch. Spoke with nursing regarding pt.'s current status. Pt. not appropriate for bedside swallow evaluation at this time. ST will follow up with pt. and nursing later today to see if pt. is more appropriate to proceed with oral intake necessary for the evaluation.
[2023-10-20] MEDS: levETIRAcetam 1500MG/NACL100ML 1,500 MG/100 ML BAG 600 MG IVPB (09:54)
[2023-10-20 10:41] LABS: Glucose Point of Care 139 mg/dl (65-105)
--- NOTE | 2023-10-20 11:41 | PCSTNOTE ---
ST attempted bedside swallow evaluation again (11:40am). Pt. condition remains the same as stated in previous note from 10/20/23. Pt. continues to be inappropriate for bedside swallow evaluation.
[2023-10-20 12:08] LABS: Glucose Point of Care 151 mg/dl (65-105)
--- NOTE | 2023-10-20 13:44 | PCPTNOTE ---
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
--- NOTE | 2023-10-20 13:45 | WPDNEURCNPN ---
Assessment and Plan Assessment and plan (1) Acute stroke due to ischemia: Code(s): I63.9 - Cerebral infarction, unspecified Status: Acute Plan ongoing multiple problems superimposed with new changes, there is moderate stenosis of internal carotid artery measuring 66% on the right and 60% on the left but considering multiple medical problems as outlined no surgical intervention at this particular time is recommended patient has large thrombus burden and receive Eliquis 5mg twice a day treatment be continued as such Consult date: 10/20/23 HPI: Isaiah Vasques is a 78 year old male admitted to the hospital with the complaints of change in the mental status with ongoing history of underlying dementia reportedly he was lethargic for the 24hour and does have ongoing history of seizures and ongoing dementia, medications at the time of admission included amlodipine 10mg daily atorvastatin 40mg daily carbamazepine 600mg q.12 hours donepezil 5mg at night levetiracetam 2000mg at night and 1500mg p.o. daily in addition to memantine 5mg q.12 hours lisinopril 20mg daily loperamide 2mg q.4 hours p.r.n. and Zofran on p.r.n. basis patient does have ongoing history of dementia with hypertension hyperlipidemia and seizure disorder. Head CTA documented generalized atrophy with moderate periventricular and subcortical white matter changes consistent with microangiopathy but no ventriculomegaly or subdural or epidural bleed the 66% stenosis of proximal right internal carotid artery, brain MRI documented small lacunar infarct of the left thalamus and additional small old periventricular lacunar infarcts in the left frontal right parietal right peritrigonal white matter, echocardiogram with left ventricular chamber dimension normal mildly increased left ventricular wall thickness, no significant valvular disease admitted to the hospital metabolic encephalopathy with ongoing history of seizure disorder superimposed on the underlying dementia and depression [facility] Past Medical History Medical History (Updated 10/20/23 @ 10:17 by Sandra Brower APRN) Dementia Depression Gastro-esophageal reflux disease without esophagitis Glaucoma Hyperlipidemia Hypertension Seizure disorder Surgical History Surgical History (Updated 10/16/23 @ 16:18 by Alisa Joy PA-C) Surgical history unknown Family History Family History Other Family history unknown Social History Social History (Updated 10/16/23 @ 16:20 by Alisa Joy PA-C) Social History: Emergency contact: Franci Vasques, spouse. Code status: Do not resuscitate, comfort focused treatment. Smoking status: Never smoker Alcohol intake: unknown Substance use: unknown Additional living arrangements comments: Resident at [facility]. Spiritual care concerns: No Meds Home Medications and Allergies Home Medications Medication Instructions Recorded Confirmed Type amlodipine 10 mg tablet 10 mg PO DAILY 06/14/23 10/16/23 History atorvastatin 40 mg tablet 40 mg PO DAILY 06/14/23 10/16/23 History carbamazepine 300 mg 600 mg PO Q12H 06/14/23 10/16/23 History capsule,extended release [id number] donepezil 5 mg tablet 5 mg PO HS 06/14/23 10/16/23 History levetiracetam 1,000 mg tablet 2,000 mg PO HS 06/14/23 10/16/23 History levetiracetam 750 mg tablet 1,500 mg PO DAILY 06/14/23 10/16/23 History memantine 5 mg tablet 5 mg PO Q12H 06/14/23 10/16/23 History acetaminophen 325 mg tablet 650 mg PO Q4H PRN Pain 10/16/23 10/16/23 History latanoprost 0.005 % eye drops 1 drp EACH EYE HS 10/16/23 10/16/23 History lisinopril 20 mg tablet 20 mg PO DAILY 10/16/23 10/16/23 History loperamide 2 mg tablet 2 mg PO Q4H PRN Diarrhea 10/16/23 10/16/23 History magnesium hydroxide 400 mg/5 mL 400 mg PO DAILY PRN Constipation 10/16/23 10/16/23 History oral suspension (Milk of Magnesia) ondansetron 4 mg disintegrating 4 mg PO Q6H P
[2023-10-20] MEDS: DEXTROSE 5%/0.45% SOD CHL 1,000 ML 100 ML IV CONT (15:38)
--- NOTE | 2023-10-20 16:54 | PC.NURSE ---
On 10/20/23, the HOSTLER HELPER, Bridgette Narvaez, provided care and completed [employer] documentation on this patient. I have reviewed the HOSTLER HELPER's documentation and agree with the findings.
[2023-10-20] MEDS: levETIRAcetam 1000MG/NACL100ML 1,000 MG/100 ML BAG 400 MG IVPB ×2 (20:56→21:29)
[2023-10-20] MEDS: LATANOPROST 0.005% OP SOLN 2.5 ML BTL 1 DROP EACH EYE (21:25)
[2023-10-21] VITALS (8 sets, daily range): BP systolic 116–148; BP diastolic 58–68; PULSE 53–91; RESP 14–18; TEMP 36.1–36.8; O2SAT 98–100
[2023-10-21 06:21] LABS: Basophils Percent Auto 0.2 % (0.2-1.2); Eosinophils Absolute Auto 0.1 K/mm3 (0-0.3); Eosinophils Percent Auto 2.2 % (0-4.4); Hematocrit 27.5 % (42.0-52.0); Hemoglobin 8.9 g/dL (14.0-18.0); Immature Granulocyte Absolute 0.06 K/mm3 (0.00-0.031); Immature Granulocyte Percent A 0.9 % (0-0.5); Lymphocytes Absolute Auto 1.29 K/mm3 (0.9-3.2); Lymphocytes Percent Auto 20.1 % (18.3-44.2); Mean Corpuscular HGB Conc 32.4 g/dl (32-36); Mean Corpuscular Hemoglobin 31.6 pg (26-34); Mean Corpuscular Volume 97.5 fl (80-100); Mean Platelet Volume 11.4 fl (7.4-10.4); Monocytes Absolute Auto 0.5 K/mm3 (0.1-0.6); Monocytes Percent Auto 7.5 % (2.6-8.5); Neutrophils Absolute Auto 4.5 K/mm3 (1.3-6.7); Neutrophils Percent Auto 69.1 % (45.5-73.1); Platelet Count Result 168 k/mm3 (150-375); Red Blood Count 2.82 M/mm3 (4.6-6.20); Red Cell Distribution Width 12.7 % (11.5-14.5); White Blood Count 6.4 K/mm3 (4.5-10.0)
[2023-10-21 06:32] LABS: Alanine Aminotransferase 14 U/L (6-50); Albumin Level 2.4 g/dL (3.5-5.1); Alkaline Phosphatase 71 U/L (38-126); Anion Gap 6 mmol/L (4-12); Aspartate Amino Transferase 28 U/L (17-59); Bilirubin,Total 0.3 mg/dL (0.2-1.3); Blood Urea Nitrogen 17 mg/dL (9-20); Calcium 7.5 mg/dL (8.4-10.2); Carbon Dioxide 24 mmol/L (22-30); Chloride 110 mmol/L (98-107); Estimated CRCL calculation 76 ml/min; Estimated Glomerular Filt Rate > 60; Glucose 117 mg/dL (65-110); Potassium 3.1 mmol/L (3.4-5.0); Sodium 140 mmol/L (137-145)
--- NOTE | 2023-10-21 07:36 | P.PNIM_ITS ---
Progress Note: A&P Assessment and Plan (1) Acute stroke due to ischemia: Code(s): I63.9 - Cerebral infarction, unspecified Status: Acute Assessment and Plan: 10/20/23: * Head CT was negative for any acute intracranial process only showed old infarcts and age-related changes * MRI of the brain showed acute small lacunar infarct in the left thalamus, few additional small old periventricular lacunar infarcts in the left frontal, right parietal, and right peritrigonal white matter which is more extensive periventricular predominant white matter T2 hyperintensity consistent with chronic small-vessel ischemic disease * Head and neck CTA showed 66% moderate stenosis of the right internal carotid artery and 60% moderate stenosis on the left, chronic age-related changes, large pulmonary embolism of the left pulmonary artery involving main as well as upper and lower lobe pulmonary arteries, large thrombus burden * Unknown last known well, normally alert and oriented times 2-3 at baseline * Continue neuro checks q.4 hour * PT/OT/speech ordered * NPO except for sips with meds, will need a swallow study verses modified barium swallow * Continue Eliquis 5 mg b.i.d. * Increased atorvastatin 80 mg daily, started on aspirin * Will get another echo today to look for right heart strain * Continuous telemetry monitoring * Neurology consulted * Spoke with Dr. Mayo neurologist at [facility] as we did not have neurology service s yesterday. He recommended the repeat echo, CTA of brain and carotid. * Case coordination consulted for hospice care 10/21/23: * Continue neuro checks q.4 hour * Speech therapy seen patient today and is recommending minced and moist level 5 diet and is able to have thin liquids. We will go ahead and advance his diet to a heart healthy diet for lunch today. Continue to monitor for signs of aspiration * We will hold off on any further hospice talk * Continue Eliquis 10 mg b.i.d. for PE/ DVT protocol * Still awaiting echocardiogram results from 10/20/2023 (2) Pulmonary embolism: Code(s): I26.99 - Other pulmonary embolism without acute cor pulmonale Status: Acute Assessment and Plan: 10/20/23: * Head and neck CTA showed 66% moderate stenosis of the right internal carotid artery and 60% moderate stenosis on the left, chronic age-related changes, large pulmonary embolism of the left pulmonary artery involving main as well as upper and lower lobe pulmonary arteries, large thrombus burden * Continue Eliquis 5 mg b.i.d. * Will repeat echo to assess for right heart strain * Last echo on 10/17/2023 shown lower limits of normal LV systolic function with an estimated EF of 50-55%, grade 1 diastolic dysfunction. * Will get venous Doppler study as well * Case coordination consult for hospice care 10/21/23: * Repeat echo still pending results * Venous Doppler shows extensive deep vein thrombosis of the left lower extremity which includes left popliteal, posterior tibial, peroneal, and gastrocnemius veins * Continue Eliquis 10 mg BID (3) DVT (deep venous thrombosis): Code(s): I82.409 - Acute embolism and thrombosis of unspecified deep veins of unspecified lower extremity Status: Acute Assessment and Plan: 10/20/23: * Venous Doppler today showed extensive deep vein thrombosis of the left lower extremity including the left popliteal, posterior tibial, peroneal, and gastr ocnemius veins * Patient currently on Eliquis 5 mg b.i.d. 10/21/23: * No change to current treatment plan (4) Metabolic encephalopathy: Code(s): G93.41 - Metabolic encephalopathy Status: Acu
--- NOTE | 2023-10-21 07:36 | PM.IMPN ---
Progress Note: A&P Assessment and Plan (1) Acute stroke due to ischemia: Code(s): I63.9 - Cerebral infarction, unspecified Status: Acute Assessment and Plan: 10/20/23: Head CT was negative for any acute intracranial process only showed old infarcts and age-related changes MRI of the brain showed acute small lacunar infarct in the left thalamus, few additional small old periventricular lacunar infarcts in the left frontal, right parietal, and right peritrigonal white matter which is more extensive periventricular predominant white matter T2 hyperintensity consistent with chronic small-vessel ischemic disease Head and neck CTA showed 66% moderate stenosis of the right internal carotid artery and 60% moderate stenosis on the left, chronic age-related changes, large pulmonary embolism of the left pulmonary artery involving main as well as upper and lower lobe pulmonary arteries, large thrombus burden Unknown last known well, normally alert and oriented times 2-3 at baseline Continue neuro checks q.4 hour PT/OT/speech ordered NPO except for sips with meds, will need a swallow study verses modified barium swallow Continue Eliquis 5 mg b.i.d. Increased atorvastatin 80 mg daily, started on aspirin Will get another echo today to look for right heart strain Continuous telemetry monitoring Neurology consulted Spoke with Dr. Mayo neurologist at [facility] as we did not have neurology services yesterday. He recommended the repeat echo, CTA of brain and carotid. Case coordination consulted for hospice care 10/21/23: Continue neuro checks q.4 hour Speech therapy seen patient today and is recommending minced and moist level 5 diet and is able to have thin liquids. We will go ahead and advance his diet to a heart healthy diet for lunch today. Continue to monitor for signs of aspiration We will hold off on any further hospice talk Continue Eliquis 10 mg b.i.d. for PE/ DVT protocol Still awaiting echocardiogram results from 10/20/2023 (2) Pulmonary embolism: Code(s): I26.99 - Other pulmonary embolism without acute cor pulmonale Status: Acute Assessment and Plan: 10/20/23: Head and neck CTA showed 66% moderate stenosis of the right internal carotid artery and 60% moderate stenosis on the left, chronic age-related changes, large pulmonary embolism of the left pulmonary artery involving main as well as upper and lower lobe pulmonary arteries, large thrombus burden Continue Eliquis 5 mg b.i.d. Will repeat echo to assess for right heart strain Last echo on 10/17/2023 shown lower limits of normal LV systolic function with an estimated EF of 50-55%, grade 1 diastolic dysfunction. Will get venous Doppler study as well Case coordination consult for hospice care 10/21/23: Repeat echo still pending results Venous Doppler shows extensive deep vein thrombosis of the left lower extremity which includes left popliteal, posterior tibial, peroneal, and gastrocnemius veins Continue Eliquis 10 mg BID (3) DVT (deep venous thrombosis): Code(s): I82.409 - Acute embolism and thrombosis of unspecified deep veins of unspecified lower extremity Status: Acute Assessment and Plan: 10/20/23: Venous Doppler today showed extensive deep vein thrombosis of the left lower extremity including the left popliteal, posterior tibial, peroneal, and gastrocnemius veins Patient currently on Eliquis 5 mg b.i.d. 10/21/23: No change to current treatment plan (4) Metabolic encephalopathy: Code(s): G93.41 - Metabolic encephalopathy Status: Acute Assessment and Plan: 10/17/23: Likely due to acute urinary tract infection verses hypernatremia versus stroke Head CT was negative 10/18/23: Continue neuro checks Consider MRI no improvement 10/19/23: Awake and alert today, answers some yes/no questions, however he is slow to respond and has blank stare Will get MRI today. 10/20/23: MRI of the brain showed
--- NOTE | 2023-10-21 09:32 | PC.NURSE ---
This RN called provider to inform pt was not taking any medications PO therefor has not received his anticoagulation since 10/18. Provider was unaware and advised that another route of anticoagulation would be started. Awaiting orders.
[2023-10-21] MEDS: ENOXAPARIN 100 MG/ML SYRINGE 85 MG SUB-Q (09:58)
--- NOTE | 2023-10-21 11:33 | PCSTNOTE ---
Please refer to the Bedside Swallow Evaluation in the EMR. Please note, silent aspiration cannot be ruled out at bedside.
[2023-10-21] MEDS: levETIRAcetam 1500MG/NACL100ML 1,500 MG/100 ML BAG 600 MG IVPB (12:42)
--- NOTE | 2023-10-21 13:00 | PCPTNOTE ---
Spoke with current hospitalist, hold therapy for today until pt has therapeutic blood levels to safely participate in OOB activities.
[2023-10-21 15:09] LABS: Glucose Point of Care 113 mg/dl (65-105)
[2023-10-21 19:00] LABS: Glucose Point of Care 127 mg/dl (65-105)
[2023-10-21] MEDS: levETIRAcetam 1000MG/NACL100ML 1,000 MG/100 ML BAG 400 MG IVPB ×2 (20:53→20:54)
[2023-10-21] MEDS: DONEPEZIL HCL 5 MG TABLET PO (20:54)
[2023-10-21] MEDS: APIXABAN 5 MG TABLET 10 MG PO (20:54)
[2023-10-21] MEDS: CARBAMAZEPINE XR 200 MG TAB.ER.12H 600 MG PO (20:54)
[2023-10-21] MEDS: MEMANTINE 5 MG TABLET PO (20:54)
[2023-10-21] MEDS: LATANOPROST 0.005% OP SOLN 2.5 ML BTL 1 DROP EACH EYE (20:55)
[2023-10-21] MEDS: DEXTROSE 5%/0.45% SOD CHL 1,000 ML 100 ML IV CONT (21:54)
[2023-10-22] VITALS (10 sets, daily range): BP systolic 133–146; BP diastolic 53–62; PULSE 69–86; RESP 16–20; TEMP 36.2–37.1; O2SAT 98–100; BMI 11.0
[2023-10-22 00:24] LABS: Glucose Point of Care 134 mg/dl (65-105)
[2023-10-22 05:51] LABS: Basophils Percent Auto 0.1 % (0.2-1.2); Eosinophils Absolute Auto 0.1 K/mm3 (0-0.3); Eosinophils Percent Auto 1.8 % (0-4.4); Hematocrit 33.1 % (42.0-52.0); Hemoglobin 11.1 g/dL (14.0-18.0); Immature Granulocyte Absolute 0.05 K/mm3 (0.00-0.031); Immature Granulocyte Percent A 0.6 % (0-0.5); Lymphocytes Absolute Auto 0.82 K/mm3 (0.9-3.2); Lymphocytes Percent Auto 10.6 % (18.3-44.2); Mean Corpuscular HGB Conc 33.5 g/dl (32-36); Mean Corpuscular Hemoglobin 32.2 pg (26-34); Mean Corpuscular Volume 95.9 fl (80-100); Mean Platelet Volume 10.5 fl (7.4-10.4); Monocytes Absolute Auto 0.6 K/mm3 (0.1-0.6); Monocytes Percent Auto 7.7 % (2.6-8.5); Neutrophils Absolute Auto 6.1 K/mm3 (1.3-6.7); Neutrophils Percent Auto 79.2 % (45.5-73.1); Platelet Count Result 231 k/mm3 (150-375); Red Blood Count 3.45 M/mm3 (4.6-6.20); White Blood Count 7.7 K/mm3 (4.5-10.0)
[2023-10-22 06:04] LABS: Alanine Aminotransferase 21 U/L (6-50); Albumin Level 3.1 g/dL (3.5-5.1); Alkaline Phosphatase 96 U/L (38-126); Anion Gap 9 mmol/L (4-12); Aspartate Amino Transferase 36 U/L (17-59); Bilirubin,Total 0.4 mg/dL (0.2-1.3); Blood Urea Nitrogen 13 mg/dL (9-20); Calcium 7.8 mg/dL (8.4-10.2); Carbon Dioxide 24 mmol/L (22-30); Chloride 108 mmol/L (98-107); Estimated CRCL calculation 67 ml/min; Estimated Glomerular Filt Rate > 60; Glucose 131 mg/dL (65-110); Potassium 2.9 mmol/L (3.4-5.0); Sodium 141 mmol/L (137-145)
--- NOTE | 2023-10-22 07:34 | P.PNIM_ITS ---
Progress Note: A&P Assessment and Plan (1) Acute stroke due to ischemia: Code(s): I63.9 - Cerebral infarction, unspecified Status: Acute Assessment and Plan: 10/20/23: * Head CT was negative for any acute intracranial process only showed old infarcts and age-related changes * MRI of the brain showed acute small lacunar infarct in the left thalamus, few additional small old periventricular lacunar infarcts in the left frontal, right parietal, and right peritrigonal white matter which is more extensive periventricular predominant white matter T2 hyperintensity consistent with chronic small-vessel ischemic disease * Head and neck CTA showed 66% moderate stenosis of the right internal carotid artery and 60% moderate stenosis on the left, chronic age-related changes, large pulmonary embolism of the left pulmonary artery involving main as well as upper and lower lobe pulmonary arteries, large thrombus burden * Unknown last known well, normally alert and oriented times 2-3 at baseline * Continue neuro checks q.4 hour * PT/OT/speech ordered * NPO except for sips with meds, will need a swallow study verses modified barium swallow * Continue Eliquis 5 mg b.i.d. * Increased atorvastatin 80 mg daily, started on aspirin * Will get another echo today to look for right heart strain * Continuous telemetry monitoring * Neurology consulted * Spoke with Dr. Mayo neurologist at [facility] as we did not have neurology service s yesterday. He recommended the repeat echo, CTA of brain and carotid. * Case coordination consulted for hospice care 10/21/23: * Continue neuro checks q.4 hour * Speech therapy seen patient today and is recommending minced and moist level 5 diet and is able to have thin liquids. We will go ahead and advance his diet to a heart healthy diet for lunch today. Continue to monitor for signs of aspiration * We will hold off on any further hospice talk * Continue Eliquis 10 mg b.i.d. for PE/ DVT protocol * Still awaiting echocardiogram results from 10/20/2023 10/22/23: * LV systolic function normal with an estimated EF of 60%, no change from previous, no PFO * Continue Eliquis * PT and OT to work with patient today (2) Pulmonary embolism: Code(s): I26.99 - Other pulmonary embolism without acute cor pulmonale Status: Acute Assessment and Plan: 10/20/23: * Head and neck CTA showed 66% moderate stenosis of the right internal carotid artery and 60% moderate stenosis on the left, chronic age-related changes, large pulmonary embolism of the left pulmonary artery involving main as well as upper and lower lobe pulmonary arteries, large thrombus burden * Continue Eliquis 5 mg b.i.d. * Will repeat echo to assess for right heart strain * Last echo on 10/17/2023 shown lower limits of normal LV systolic function with an estimated EF of 50-55%, grade 1 diastolic dysfunction. * Will get venous Doppler study as well * Case coordination consult for hospice care 10/21/23: * Repeat echo still pending results * Venous Doppler shows extensive deep vein thrombosis of the left lower extremity which includes left popliteal, posterior tibial, peroneal, and gastrocnemius veins * Continue Eliquis 10 mg BID 10/22/23: * Normal LV systolic function with an estimated EF of 40%, no change from previous, no PFO (3) DVT (deep venous thrombosis): Code(s): I82.409 - Acute embolism and thrombosis of unspecified deep veins of unspecified lower extremity Status: Acute Assessment and Plan: 10/20/23: * Venous Doppler today showed extensive deep vein thrombosis of the left lower extremity incl
--- NOTE | 2023-10-22 07:34 | PM.IMPN ---
Progress Note: A&P Assessment and Plan (1) Acute stroke due to ischemia: Code(s): I63.9 - Cerebral infarction, unspecified Status: Acute Assessment and Plan: 10/20/23: Head CT was negative for any acute intracranial process only showed old infarcts and age-related changes MRI of the brain showed acute small lacunar infarct in the left thalamus, few additional small old periventricular lacunar infarcts in the left frontal, right parietal, and right peritrigonal white matter which is more extensive periventricular predominant white matter T2 hyperintensity consistent with chronic small-vessel ischemic disease Head and neck CTA showed 66% moderate stenosis of the right internal carotid artery and 60% moderate stenosis on the left, chronic age-related changes, large pulmonary embolism of the left pulmonary artery involving main as well as upper and lower lobe pulmonary arteries, large thrombus burden Unknown last known well, normally alert and oriented times 2-3 at baseline Continue neuro checks q.4 hour PT/OT/speech ordered NPO except for sips with meds, will need a swallow study verses modified barium swallow Continue Eliquis 5 mg b.i.d. Increased atorvastatin 80 mg daily, started on aspirin Will get another echo today to look for right heart strain Continuous telemetry monitoring Neurology consulted Spoke with Dr. Mayo neurologist at [facility] as we did not have neurology services yesterday. He recommended the repeat echo, CTA of brain and carotid. Case coordination consulted for hospice care 10/21/23: Continue neuro checks q.4 hour Speech therapy seen patient today and is recommending minced and moist level 5 diet and is able to have thin liquids. We will go ahead and advance his diet to a heart healthy diet for lunch today. Continue to monitor for signs of aspiration We will hold off on any further hospice talk Continue Eliquis 10 mg b.i.d. for PE/ DVT protocol Still awaiting echocardiogram results from 10/20/2023 10/22/23: LV systolic function normal with an estimated EF of 60%, no change from previous, no PFO Continue Eliquis PT and OT to work with patient today (2) Pulmonary embolism: Code(s): I26.99 - Other pulmonary embolism without acute cor pulmonale Status: Acute Assessment and Plan: 10/20/23: Head and neck CTA showed 66% moderate stenosis of the right internal carotid artery and 60% moderate stenosis on the left, chronic age-related changes, large pulmonary embolism of the left pulmonary artery involving main as well as upper and lower lobe pulmonary arteries, large thrombus burden Continue Eliquis 5 mg b.i.d. Will repeat echo to assess for right heart strain Last echo on 10/17/2023 shown lower limits of normal LV systolic function with an estimated EF of 50-55%, grade 1 diastolic dysfunction. Will get venous Doppler study as well Case coordination consult for hospice care 10/21/23: Repeat echo still pending results Venous Doppler shows extensive deep vein thrombosis of the left lower extremity which includes left popliteal, posterior tibial, peroneal, and gastrocnemius veins Continue Eliquis 10 mg BID 10/22/23: Normal LV systolic function with an estimated EF of 40%, no change from previous, no PFO (3) DVT (deep venous thrombosis): Code(s): I82.409 - Acute embolism and thrombosis of unspecified deep veins of unspecified lower extremity Status: Acute Assessment and Plan: 10/20/23: Venous Doppler today showed extensive deep vein thrombosis of the left lower extremity including the left popliteal, posterior tibial, peroneal, and gastrocnemius veins Patient currently on Eliquis 5 mg b.i.d. 10/21/23: No change to current treatment plan 10/22/23: Patient currently on Eliquis 10 mg b.i.d. (4) Metabolic encephalopathy: Code(s): G93.41 - Metabolic encephalopathy Status: Acute Assessment and Plan: 10/17/23: Likely due to acute urinary
[2023-10-22] MEDS: ATORVASTATIN 40 MG TABLET 80 MG PO (10:43)
[2023-10-22] MEDS: amLODIPine BESYLATE 10 MG TABLET PO (10:43)
[2023-10-22] MEDS: MEMANTINE 5 MG TABLET PO ×2 (10:43→20:06)
[2023-10-22] MEDS: CARBAMAZEPINE XR 200 MG TAB.ER.12H 600 MG PO ×2 (10:43→20:06)
[2023-10-22] MEDS: lisinopriL 20 MG TABLET PO (10:43)
[2023-10-22] MEDS: APIXABAN 5 MG TABLET 10 MG PO ×2 (10:43→20:05)
[2023-10-22] MEDS: levETIRAcetam 1500MG/NACL100ML 1,500 MG/100 ML BAG 600 MG IVPB (10:44)
[2023-10-22] MEDS: POTASSIUM CHLORIDE 20 MEQ ER TABLET 40 MEQ PO (10:44)
[2023-10-22] MEDS: ASPIRIN 81 MG ENTERIC TABLET PO (10:44)
--- NOTE | 2023-10-22 11:24 | PCNFU ---
Nutrition Follow-Up Complete: Severe protein calorie malnutrition related to chronic dementia as evidenced by weight loss 14%/3 months; intakes <75% needs >1 month; moderate muscle wasting to temporalis, clavicles, shoulders Goal:Advance diet as medically able Improve PO intake when diet advanced Pt current nutrition is Heart healthy, minced and moist level 5, Ensure compact BID. Nutrition recommendation: Increase Ensure compact To TID Last recorded weight is 87.5 kg. Bowel Motility: +BM 10/17 Labs Reviewed: Hgb:11.1, HCT:33.1, Alb:3.1, K:2.9, Glu:131 Meds Noted: lovenox, zofran Skin: WNL Additional Notes: Pt continues on a heart healthy diet, intake 40% most meals, Ensure compact BID in place, will increase to TID Monitoring diet orders, weights, labs, plan of care Follow up in 5 days
[2023-10-22] MEDS: DEXTROSE 5%/0.45% SOD CHL 1,000 ML 100 ML IV CONT ×2 (11:36→20:05)
--- NOTE | 2023-10-22 11:59 | WPDNEUROPN ---
Progress Note: A&P Assessment and Plan (1) Acute stroke due to ischemia: Code(s): I63.9 - Cerebral infarction, unspecified Status: Acute (2) Pulmonary embolism: Code(s): I26.99 - Other pulmonary embolism without acute cor pulmonale Status: Acute (3) Dementia: Code(s): F03.90 - Unspecified dementia, unspecified severity, without behavioral disturbance, psychotic disturbance, mood disturbance, and anxiety Status: Acute (4) Hypertension: Code(s): I10 - Essential (primary) hypertension Status: Acute (5) Seizure disorder: Code(s): G40.909 - Epilepsy, unspecified, not intractable, without status epilepticus Status: Acute Plan According to the history he does have history of seizure disorder for a long time in his own 2 major anticonvulsants. I would suggest to continue the same treatment unless he has any further seizures or any issues from neurologic point of view we can continue with other medications which include Lipitor, aspirin, Aricept and Namenda. It does not appear that he is being followed up in Neurology offices at least here but given the history of all these neurologic problem probably some Neurology follow-up would be desirable. Subjective Date/time seen: 10/22/23 11:59 Interval history: Patient is 78-year-old with history of dementia, seizure disorder admitted to the hospital with the changes in mental status. MRI of the brain shows a small the left thalamic infarct probably coincidental finding nevertheless the patient still remains lethargic. He states that he gets around in a wheelchair only and does not walk. He is on Tegretol 1200 mg a day and Keppra 15 mg a day in. In addition is also on Aricept and Namenda and Lipitor and aspirin. CT angiogram head and neck shows 66% narrowing in the right and 60% narrowing of the left internal carotid artery. No large vessel occlusion were seen in the intracranial vessels. MRI of the brain has shown crit significant chronic ischemic changes and prominent ventricles. Review of Systems Review of Systems: ROS unobtainable: Yes unobtainable due to mental status Exam Narrative: Patient is awake no aphasia or dysarthria however his cooperation is other suboptimal. Difficult to do formalized evaluation of the cranial nerves motor or sensory system. No involuntary movements are seen. Objective Data Vital Signs Vital Signs: Vital Signs - 24 hr 10/21/23 14:00 10/21/23 12:00 10/21/23 16:00 Temperature 36.1 C L Pulse Rate 73 89 91 Respiratory Rate 18 Blood Pressure 148/65 H Pulse Oximetry 98 Oxygen Delivery 10/21/23 19:44 10/21/23 20:40 10/21/23 20:00 Temperature 36.8 C Pulse Rate 76 80 Respiratory Rate 18 Blood Pressure 131/68 Pulse Oximetry 99 Oxygen Delivery Room Air 10/22/23 00:00 10/22/23 04:00 10/22/23 04:40 Temperature 36.3 C L Pulse Rate 84 75 69 Respiratory Rate 20 Blood Pressure 142/53 H Pulse Oximetry 99 Oxygen Delivery Intake/Output Intake/Output: Intake & Output 10/19/23 10/20/23 10/21/23 10/22/23 23:59 23:59 23:59 23:59 Intake Total 1726.7 1350 1670 1470 Output Total 900 300 600 870 Balance 826.7 1050 1070 600 Meds/Results Medications: Active Medications Generic Name Dose Route Start Last Admin Trade Name Freq PRN Reason Stop Dose Admin Acetaminophen 650 mg 10/16/23 16:05 10/19/23 20:45 Acetaminophen 325 Mg Tablet PO 650 mg Q4H PRN Administration Mild Pain (1-3) or Fever Amlodipine Besylate 10 mg 10/17/23 09:00 10/22/23 10:43 Amlodipine Besylate 10 Mg Tablet PO 10 mg DAILY IVETTE Administration Apixaban 10 mg 10/21/23 21:00 10/22/23 10:43 Apixaban 5 Mg Tablet PO 10/28/23 09:01 10 mg Q12HR IVETTE Administration Apixaban 5 mg 10/28/23 21:00 Apixaban 5 Mg Tablet PO Q12HR IVETTE Aspirin 81 mg 10/19/23 14:25 10/22/23 10:44 Aspirin 81 Mg Enteric Tablet PO 81 mg
[2023-10-22 12:24] LABS: Glucose Point of Care 140 mg/dl (65-105)
--- NOTE | 2023-10-22 16:22 | PCPTNOTE ---
On 10/22/23, the student, [Suzette Ernandez], provided care and completed [facility] documentation on this patient. I have reviewed the student's documentation and agree with the findings.
[2023-10-22 17:42] LABS: Glucose Point of Care 130 mg/dl (65-105)
[2023-10-22] MEDS: levETIRAcetam 1000MG/NACL100ML 1,000 MG/100 ML BAG 400 MG IVPB ×2 (20:06→21:10)
[2023-10-22] MEDS: DONEPEZIL HCL 5 MG TABLET PO (20:06)
[2023-10-22] MEDS: LATANOPROST 0.005% OP SOLN 2.5 ML BTL 1 DROP EACH EYE (20:28)
[2023-10-22 23:49] LABS: Glucose Point of Care 134 mg/dl (65-105)
[2023-10-23] VITALS (8 sets, daily range): BP systolic 139–149; BP diastolic 58–72; PULSE 65–76; RESP 18–20; TEMP 36.4–36.6; O2SAT 98–99; BMI 10.0
[2023-10-23] MEDS: DEXTROSE 5%/0.45% SOD CHL 1,000 ML 100 ML IV CONT (05:56)
[2023-10-23 06:26] LABS: Basophils Percent Auto 0.4 % (0.2-1.2); Eosinophils Absolute Auto 0.2 K/mm3 (0-0.3); Eosinophils Percent Auto 2.8 % (0-4.4); Hematocrit 28.6 % (42.0-52.0); Hemoglobin 9.5 g/dL (14.0-18.0); Immature Granulocyte Absolute 0.08 K/mm3 (0.00-0.031); Lymphocytes Absolute Auto 0.93 K/mm3 (0.9-3.2); Lymphocytes Percent Auto 11.5 % (18.3-44.2); Mean Corpuscular HGB Conc 33.2 g/dl (32-36); Mean Corpuscular Hemoglobin 32.2 pg (26-34); Mean Corpuscular Volume 96.9 fl (80-100); Mean Platelet Volume 10.9 fl (7.4-10.4); Monocytes Absolute Auto 0.7 K/mm3 (0.1-0.6); Monocytes Percent Auto 8.1 % (2.6-8.5); Neutrophils Absolute Auto 6.2 K/mm3 (1.3-6.7); Neutrophils Percent Auto 76.2 % (45.5-73.1); Platelet Count Result 260 k/mm3 (150-375); Red Blood Count 2.95 M/mm3 (4.6-6.20); Red Cell Distribution Width 13.2 % (11.5-14.5); White Blood Count 8.1 K/mm3 (4.5-10.0)
[2023-10-23 06:40] LABS: Alanine Aminotransferase 17 U/L (6-50); Albumin Level 2.5 g/dL (3.5-5.1); Alkaline Phosphatase 84 U/L (38-126); Anion Gap 5 mmol/L (4-12); Aspartate Amino Transferase 26 U/L (17-59); Bilirubin,Total 0.3 mg/dL (0.2-1.3); Blood Urea Nitrogen 7 mg/dL (9-20); Calcium 7.4 mg/dL (8.4-10.2); Carbon Dioxide 24 mmol/L (22-30); Chloride 107 mmol/L (98-107); Estimated CRCL calculation 88 ml/min; Estimated Glomerular Filt Rate > 60; Glucose 120 mg/dL (65-110); Potassium 3.1 mmol/L (3.4-5.0); Sodium 136 mmol/L (137-145)
[2023-10-23] MEDS: levETIRAcetam 1500MG/NACL100ML 1,500 MG/100 ML BAG 600 MG IVPB (09:09)
[2023-10-23] MEDS: POTASSIUM CHLORIDE INJ 40 MEQ in SODIUM CHLORIDE 0.9% IV 500 ML 130 MEQ IVPB (10:01)
[2023-10-23] MEDS: ENOXAPARIN 80 MG/0.8 ML SYRINGE SUB-Q ×2 (10:01→21:54)
--- NOTE | 2023-10-23 11:25 | PC.NURSE ---
Spoke with Sandra this AM regarding patient's lack of following commands/ swallowing/ and verbally responding. Patient will occasionally squeeze hand when instructed. Patient was holding breakfast in his mouth not swallowing. Currently holding PO medications for now and switching to IV where possible. Per Dr. Ever Flores to come assess patient.
[2023-10-23 12:05] LABS: Ammonia < 9 umol/L (9-30)
[2023-10-23 12:47] LABS: Glucose Point of Care 100 mg/dl (65-105)
--- NOTE | 2023-10-23 13:47 | P.PNIM_ITS ---
Progress Note: A&P Assessment and Plan (1) Acute stroke due to ischemia: Code(s): I63.9 - Cerebral infarction, unspecified Status: Acute Assessment and Plan: 10/20/23: * Head CT was negative for any acute intracranial process only showed old infarcts and age-related changes * MRI of the brain showed acute small lacunar infarct in the left thalamus, few additional small old periventricular lacunar infarcts in the left frontal, right parietal, and right peritrigonal white matter which is more extensive periventricular predominant white matter T2 hyperintensity consistent with chronic small-vessel ischemic disease * Head and neck CTA showed 66% moderate stenosis of the right internal carotid artery and 60% moderate stenosis on the left, chronic age-related changes, large pulmonary embolism of the left pulmonary artery involving main as well as upper and lower lobe pulmonary arteries, large thrombus burden * Unknown last known well, normally alert and oriented times 2-3 at baseline * Continue neuro checks q.4 hour * PT/OT/speech ordered * NPO except for sips with meds, will need a swallow study verses modified barium swallow * Continue Eliquis 5 mg b.i.d. * Increased atorvastatin 80 mg daily, started on aspirin * Will get another echo today to look for right heart strain * Continuous telemetry monitoring * Neurology consulted * Spoke with Dr. Mayo neurologist at [facility] as we did not have neurology service s yesterday. He recommended the repeat echo, CTA of brain and carotid. * Case coordination consulted for hospice care 10/21/23: * Continue neuro checks q.4 hour * Speech therapy seen patient today and is recommending minced and moist level 5 diet and is able to have thin liquids. We will go ahead and advance his diet to a heart healthy diet for lunch today. Continue to monitor for signs of aspiration * We will hold off on any further hospice talk * Continue Eliquis 10 mg b.i.d. for PE/ DVT protocol * Still awaiting echocardiogram results from 10/20/2023 10/22/23: * LV systolic function normal with an estimated EF of 60%, no change from previous, no PFO * Continue Eliquis * PT and OT to work with patient today 10/23/23: * No change (2) Pulmonary embolism: Code(s): I26.99 - Other pulmonary embolism without acute cor pulmonale Status: Acute Assessment and Plan: 10/20/23: * Head and neck CTA showed 66% moderate stenosis of the right internal carotid artery and 60% moderate stenosis on the left, chronic age-related changes, large pulmonary embolism of the left pulmonary artery involving main as well as upper and lower lobe pulmonary arteries, large thrombus burden * Continue Eliquis 5 mg b.i.d. * Will repeat echo to assess for right heart strain * Last echo on 10/17/2023 shown lower limits of normal LV systolic function with an estimated EF of 50-55%, grade 1 diastolic dysfunction. * Will get venous Doppler study as well * Case coordination consult for hospice care 10/21/23: * Repeat echo still pending results * Venous Doppler shows extensive deep vein thrombosis of the left lower extremity which includes left popliteal, posterior tibial, peroneal, and gastrocnemius veins * Continue Eliquis 10 mg BID 10/22/23: * Normal LV systolic function with an estimated EF of 40%, no change from previous, no PFO 10/23/23: * No change to current treatment plan * Continue eliquis. (3) DVT (deep venous thrombosis): Code(s): I82.409 - Acute embolism and thrombosis of unspecified deep veins of unspecified lower extremity Status: Acute Assessment and
--- NOTE | 2023-10-23 13:47 | PM.IMPN ---
Progress Note: A&P Assessment and Plan (1) Acute stroke due to ischemia: Code(s): I63.9 - Cerebral infarction, unspecified Status: Acute Assessment and Plan: 10/20/23: Head CT was negative for any acute intracranial process only showed old infarcts and age-related changes MRI of the brain showed acute small lacunar infarct in the left thalamus, few additional small old periventricular lacunar infarcts in the left frontal, right parietal, and right peritrigonal white matter which is more extensive periventricular predominant white matter T2 hyperintensity consistent with chronic small-vessel ischemic disease Head and neck CTA showed 66% moderate stenosis of the right internal carotid artery and 60% moderate stenosis on the left, chronic age-related changes, large pulmonary embolism of the left pulmonary artery involving main as well as upper and lower lobe pulmonary arteries, large thrombus burden Unknown last known well, normally alert and oriented times 2-3 at baseline Continue neuro checks q.4 hour PT/OT/speech ordered NPO except for sips with meds, will need a swallow study verses modified barium swallow Continue Eliquis 5 mg b.i.d. Increased atorvastatin 80 mg daily, started on aspirin Will get another echo today to look for right heart strain Continuous telemetry monitoring Neurology consulted Spoke with Dr. Mayo neurologist at [facility] as we did not have neurology services yesterday. He recommended the repeat echo, CTA of brain and carotid. Case coordination consulted for hospice care 10/21/23: Continue neuro checks q.4 hour Speech therapy seen patient today and is recommending minced and moist level 5 diet and is able to have thin liquids. We will go ahead and advance his diet to a heart healthy diet for lunch today. Continue to monitor for signs of aspiration We will hold off on any further hospice talk Continue Eliquis 10 mg b.i.d. for PE/ DVT protocol Still awaiting echocardiogram results from 10/20/2023 10/22/23: LV systolic function normal with an estimated EF of 60%, no change from previous, no PFO Continue Eliquis PT and OT to work with patient today 10/23/23: No change (2) Pulmonary embolism: Code(s): I26.99 - Other pulmonary embolism without acute cor pulmonale Status: Acute Assessment and Plan: 10/20/23: Head and neck CTA showed 66% moderate stenosis of the right internal carotid artery and 60% moderate stenosis on the left, chronic age-related changes, large pulmonary embolism of the left pulmonary artery involving main as well as upper and lower lobe pulmonary arteries, large thrombus burden Continue Eliquis 5 mg b.i.d. Will repeat echo to assess for right heart strain Last echo on 10/17/2023 shown lower limits of normal LV systolic function with an estimated EF of 50-55%, grade 1 diastolic dysfunction. Will get venous Doppler study as well Case coordination consult for hospice care 10/21/23: Repeat echo still pending results Venous Doppler shows extensive deep vein thrombosis of the left lower extremity which includes left popliteal, posterior tibial, peroneal, and gastrocnemius veins Continue Eliquis 10 mg BID 10/22/23: Normal LV systolic function with an estimated EF of 40%, no change from previous, no PFO 10/23/23: No change to current treatment plan Continue eliquis. (3) DVT (deep venous thrombosis): Code(s): I82.409 - Acute embolism and thrombosis of unspecified deep veins of unspecified lower extremity Status: Acute Assessment and Plan: 10/20/23: Venous Doppler today showed extensive deep vein thrombosis of the left lower extremity including the left popliteal, posterior tibial, peroneal, and gastrocnemius veins Patient currently on Eliquis 5 mg b.i.d. 10/21/23: No change to current treatment plan 10/22/23: Patient currently on Eliquis 10 mg b.i.d. 10/23/23: No change to current treatment plan (4) Metabolic encephalopath
[2023-10-23 18:26] LABS: Glucose Point of Care 105 mg/dl (65-105)
[2023-10-23] MEDS: levETIRAcetam 1000MG/NACL100ML 1,000 MG/100 ML BAG 400 MG IVPB ×2 (21:45)
[2023-10-23] MEDS: LATANOPROST 0.005% OP SOLN 2.5 ML BTL 1 DROP EACH EYE (21:46)
[2023-10-23 23:44] LABS: Glucose Point of Care 109 mg/dl (65-105)
[2023-10-24] VITALS (10 sets, daily range): BP systolic 168–181; BP diastolic 62–85; PULSE 54–84; RESP 13–20; TEMP 36.3–37.1; O2SAT 97–99; BMI 10.0
[2023-10-24] MEDS: levETIRAcetam 1500MG/NACL100ML 1,500 MG/100 ML BAG 600 MG IVPB (09:10)
[2023-10-24] MEDS: DEXTROSE 5%/0.45% SOD CHL 1,000 ML 100 ML IV CONT ×2 (09:11→20:11)
[2023-10-24] MEDS: ENOXAPARIN 80 MG/0.8 ML SYRINGE SUB-Q ×2 (09:13→20:11)
[2023-10-24 10:05] LABS: Basophils Percent Auto 0.4 % (0.2-1.2); Eosinophils Absolute Auto 0.2 K/mm3 (0-0.3); Eosinophils Percent Auto 3.5 % (0-4.4); Hematocrit 27.7 % (42.0-52.0); Hemoglobin 9.5 g/dL (14.0-18.0); Immature Granulocyte Absolute 0.06 K/mm3 (0.00-0.031); Immature Granulocyte Percent A 0.9 % (0-0.5); Lymphocytes Absolute Auto 0.88 K/mm3 (0.9-3.2); Lymphocytes Percent Auto 12.7 % (18.3-44.2); Mean Corpuscular HGB Conc 34.3 g/dl (32-36); Mean Corpuscular Hemoglobin 32.6 pg (26-34); Mean Corpuscular Volume 95.2 fl (80-100); Mean Platelet Volume 10.7 fl (7.4-10.4); Monocytes Absolute Auto 0.6 K/mm3 (0.1-0.6); Monocytes Percent Auto 8.6 % (2.6-8.5); Neutrophils Absolute Auto 5.1 K/mm3 (1.3-6.7); Neutrophils Percent Auto 73.9 % (45.5-73.1); Platelet Count Result 295 k/mm3 (150-375); Red Blood Count 2.91 M/mm3 (4.6-6.20); Red Cell Distribution Width 13.2 % (11.5-14.5)
[2023-10-24 11:19] LABS: Alanine Aminotransferase 18 U/L (6-50); Albumin Level 2.5 g/dL (3.5-5.1); Alkaline Phosphatase 75 U/L (38-126); Anion Gap 6 mmol/L (4-12); Aspartate Amino Transferase 28 U/L (17-59); Bilirubin,Total 0.5 mg/dL (0.2-1.3); Blood Urea Nitrogen 5 mg/dL (9-20); Calcium 7.5 mg/dL (8.4-10.2); Carbon Dioxide 23 mmol/L (22-30); Chloride 106 mmol/L (98-107); Estimated CRCL calculation 103 ml/min; Estimated Glomerular Filt Rate > 60; Glucose 105 mg/dL (65-110); Potassium 3.2 mmol/L (3.4-5.0); Sodium 135 mmol/L (137-145)
[2023-10-24 11:40] LABS: Glucose Point of Care 109 mg/dl (65-105)
--- NOTE | 2023-10-24 13:54 | PM.DS ---
DS: Admitting Diagnosis Discharge Date 10/24/23 Admitting Diagnosis Hypernatremia UTI Metabolic encephalopathy Macrocytic anemia Seizure disorder Hypertension Dementia Depression Glaucoma DS: Discharge Diagnosis Discharge Diagnosis (1) Acute stroke due to ischemia: Code(s): I63.9 - Cerebral infarction, unspecified Status: Acute (2) Pulmonary embolism: Code(s): I26.99 - Other pulmonary embolism without acute cor pulmonale Status: Acute (3) DVT (deep venous thrombosis): Code(s): I82.409 - Acute embolism and thrombosis of unspecified deep veins of unspecified lower extremity Status: Acute (4) Metabolic encephalopathy: Code(s): G93.41 - Metabolic encephalopathy Status: Acute (5) Macrocytic anemia: Code(s): D53.9 - Nutritional anemia, unspecified Status: Acute (6) Seizure disorder: Code(s): G40.909 - Epilepsy, unspecified, not intractable, without status epilepticus Status: Acute (7) Hypertension: Code(s): I10 - Essential (primary) hypertension Status: Acute DS: Summary Hospital Course Reason for hospitalization: Hypernatremia UTI Metabolic encephalopathy Macrocytic anemia Seizure disorder Hypertension Dementia Depression Glaucoma Hospital Course: This is a 78-year-old male who presented to the hospital on 10/16/2023 for evaluation of altered mental status. Patient was brought to the emergency room via EMS from [facility]. Patient's baseline orientation is alert and oriented times 2-3. Workup in the hospital included head CT which was negative for any acute intracranial findings. Initial labs showed a white blood cell count of 11.5, hemoglobin 13.3, sodium 165, chloride 127, EGFR 53, iron 61 ferritin 317, alk-phos 128, troponin 0.058> 0.050> 0.051, TSH 0.649. UA was obtained which showed 2+ urine protein, trace ketone, 2+ leukocytes, 51-100 urine RBCs, 21-50 urine WBC 4+ bacteria. Urine culture was obtained and is pending. Echocardiogram showed normal LV systolic function with an estimated EF of 50-55%, grade 1 diastolic dysfunction. Patient was started on Rocephin. On 10/20/2023 patient alert to voice however is slow to respond. We went ahead and got an MRI of the brain which shows a new infarct in the left thalamus. Head and neck CTA shown large PE with significant clot burden, and ultrasound Doppler of bilateral lower extremities shown extensive DVT including the left popliteal, posterior tibial, peroneal, and gastrocnemius veins. Patient was started on Eliquis per PE DVT protocol. He was more awake on 10/21/2023 and we did a swallow study which he passed without any difficulty. He is still slow to respond at times. He did work with PT and OT and he is at least a 2 assist/max assist when moving from the bed to the chair. He is stable for discharge at this time to [place] in [facility]. Final diagnosis: Hypernatremia, metabolic encephalopathy, acute CVA, pulmonary embolism, DVT Status at Discharge Cognitive/behavioral status at discharge: Alert to voice and oriented x2 Functional status at discharge: wheelchair bound Overall status at discharge: patient is progressing back to baseline Time Spent with Patient Time attestation: Total time spent providing and/or coordinating discharge services: Time spent: Greater than 30 minutes Exam Narrative: General: In no acute distress, appears weak and lethargic Cardiac: Normal S1 and S2. RRR, No murmur, gallops or friction rubs, peripheral pulses intact. Respiratory: Lungs clear to auscultation, no adventitious lung sounds, currently on room air Gastrointestinal: soft, non-distended, non-tender, normoactive bowel sounds. : voiding without difficulty clear, spencer urine. Neuro: Alert to voice and oriented x2, delayed responses to questions DS: Data Data Completed and Pending Completed studies during hospitalization: Brain MRI x2 Venous Doppler study
--- NOTE | 2023-10-24 15:26 | P.PNIM_ITS ---
Progress Note: A&P Assessment and Plan (1) Acute stroke due to ischemia: Code(s): I63.9 - Cerebral infarction, unspecified Status: Acute Assessment and Plan: 10/20/23: * Head CT was negative for any acute intracranial process only showed old infarcts and age-related changes * MRI of the brain showed acute small lacunar infarct in the left thalamus, few additional small old periventricular lacunar infarcts in the left frontal, right parietal, and right peritrigonal white matter which is more extensive periventricular predominant white matter T2 hyperintensity consistent with chronic small-vessel ischemic disease * Head and neck CTA showed 66% moderate stenosis of the right internal carotid artery and 60% moderate stenosis on the left, chronic age-related changes, large pulmonary embolism of the left pulmonary artery involving main as well as upper and lower lobe pulmonary arteries, large thrombus burden * Unknown last known well, normally alert and oriented times 2-3 at baseline * Continue neuro checks q.4 hour * PT/OT/speech ordered * NPO except for sips with meds, will need a swallow study verses modified barium swallow * Continue Eliquis 5 mg b.i.d. * Increased atorvastatin 80 mg daily, started on aspirin * Will get another echo today to look for right heart strain * Continuous telemetry monitoring * Neurology consulted * Spoke with Dr. Mayo neurologist at [facility] as we did not have neurology service s yesterday. He recommended the repeat echo, CTA of brain and carotid. * Case coordination consulted for hospice care 10/21/23: * Continue neuro checks q.4 hour * Speech therapy seen patient today and is recommending minced and moist level 5 diet and is able to have thin liquids. We will go ahead and advance his diet to a heart healthy diet for lunch today. Continue to monitor for signs of aspiration * We will hold off on any further hospice talk * Continue Eliquis 10 mg b.i.d. for PE/ DVT protocol * Still awaiting echocardiogram results from 10/20/2023 10/22/23: * LV systolic function normal with an estimated EF of 60%, no change from previous, no PFO * Continue Eliquis * PT and OT to work with patient today 10/23/23: * No change 10/24/23: * Repeat MRI was done yesterday and did not show any new acute changes from the previous study * Concerns with patient's ability to swallow we will go ahead and repeat his swallow study today * Approached hospice again today with the patient's and she would like to have a family meeting regarding his current condition and discuss hospice versus G-tube placement which the stressed that the patient would not want. * Continue PT and OT * Continue therapeutic Lovenox (2) Pulmonary embolism: Code(s): I26.99 - Other pulmonary embolism without acute cor pulmonale Status: Acute Assessment and Plan: 10/20/23: * Head and neck CTA showed 66% moderate stenosis of the right internal carotid a rtery and 60% moderate stenosis on the left, chronic age-related changes, large pulmonary embolism of the left pulmonary artery involving main as well as upper and lower lobe pulmonary arteries, large thrombus burden * Continue Eliquis 5 mg b.i.d. * Will repeat echo to assess for right heart strain * Last echo on 10/17/2023 shown lower limits of normal LV systolic function with an estimated EF of 50-55%, grade 1 diastolic dysfunction. * Will get venous Doppler study as well * Case coordination consult for hospice care 10/21/23: * Repeat echo still pending results * Venous Doppler shows extensive deep vein thrombosis of the left lower extrem
--- NOTE | 2023-10-24 15:26 | PM.IMPN ---
Progress Note: A&P Assessment and Plan (1) Acute stroke due to ischemia: Code(s): I63.9 - Cerebral infarction, unspecified Status: Acute Assessment and Plan: 10/20/23: Head CT was negative for any acute intracranial process only showed old infarcts and age-related changes MRI of the brain showed acute small lacunar infarct in the left thalamus, few additional small old periventricular lacunar infarcts in the left frontal, right parietal, and right peritrigonal white matter which is more extensive periventricular predominant white matter T2 hyperintensity consistent with chronic small-vessel ischemic disease Head and neck CTA showed 66% moderate stenosis of the right internal carotid artery and 60% moderate stenosis on the left, chronic age-related changes, large pulmonary embolism of the left pulmonary artery involving main as well as upper and lower lobe pulmonary arteries, large thrombus burden Unknown last known well, normally alert and oriented times 2-3 at baseline Continue neuro checks q.4 hour PT/OT/speech ordered NPO except for sips with meds, will need a swallow study verses modified barium swallow Continue Eliquis 5 mg b.i.d. Increased atorvastatin 80 mg daily, started on aspirin Will get another echo today to look for right heart strain Continuous telemetry monitoring Neurology consulted Spoke with Dr. Mayo neurologist at [facility] as we did not have neurology services yesterday. He recommended the repeat echo, CTA of brain and carotid. Case coordination consulted for hospice care 10/21/23: Continue neuro checks q.4 hour Speech therapy seen patient today and is recommending minced and moist level 5 diet and is able to have thin liquids. We will go ahead and advance his diet to a heart healthy diet for lunch today. Continue to monitor for signs of aspiration We will hold off on any further hospice talk Continue Eliquis 10 mg b.i.d. for PE/ DVT protocol Still awaiting echocardiogram results from 10/20/2023 10/22/23: LV systolic function normal with an estimated EF of 60%, no change from previous, no PFO Continue Eliquis PT and OT to work with patient today 10/23/23: No change 10/24/23: Repeat MRI was done yesterday and did not show any new acute changes from the previous study Concerns with patient's ability to swallow we will go ahead and repeat his swallow study today Approached hospice again today with the patient's and she would like to have a family meeting regarding his current condition and discuss hospice versus G-tube placement which the stressed that the patient would not want. Continue PT and OT Continue therapeutic Lovenox (2) Pulmonary embolism: Code(s): I26.99 - Other pulmonary embolism without acute cor pulmonale Status: Acute Assessment and Plan: 10/20/23: Head and neck CTA showed 66% moderate stenosis of the right internal carotid artery and 60% moderate stenosis on the left, chronic age-related changes, large pulmonary embolism of the left pulmonary artery involving main as well as upper and lower lobe pulmonary arteries, large thrombus burden Continue Eliquis 5 mg b.i.d. Will repeat echo to assess for right heart strain Last echo on 10/17/2023 shown lower limits of normal LV systolic function with an estimated EF of 50-55%, grade 1 diastolic dysfunction. Will get venous Doppler study as well Case coordination consult for hospice care 10/21/23: Repeat echo still pending results Venous Doppler shows extensive deep vein thrombosis of the left lower extremity which includes left popliteal, posterior tibial, peroneal, and gastrocnemius veins Continue Eliquis 10 mg BID 10/22/23: Normal LV systolic function with an estimated EF of 40%, no change from previous, no PFO 10/23/23: No change to current treatment plan Continue eliquis. 10/24/23: Continue therapeutic Lovenox (3) DVT (deep venous thrombosis): Code(s): I82.409 - Acute emboli
[2023-10-24 17:54] LABS: Glucose Point of Care 115 mg/dl (65-105)
[2023-10-24] MEDS: levETIRAcetam 1000MG/NACL100ML 1,000 MG/100 ML BAG 400 MG IVPB ×2 (20:14→20:15)
[2023-10-24] MEDS: LATANOPROST 0.005% OP SOLN 2.5 ML BTL 1 DROP EACH EYE (20:21)
[2023-10-25] VITALS (9 sets, daily range): BP systolic 129–144; BP diastolic 41–53; PULSE 44–70; RESP 12; TEMP 36.2–36.8; O2SAT 100
[2023-10-25 00:01] LABS: Glucose Point of Care 125 mg/dl (65-105)
[2023-10-25 05:17] LABS: Glucose Point of Care 119 mg/dl (65-105)
[2023-10-25 06:18] LABS: Basophils Percent Auto 0.5 % (0.2-1.2); Eosinophils Absolute Auto 0.2 K/mm3 (0-0.3); Eosinophils Percent Auto 3.9 % (0-4.4); Hematocrit 29.5 % (42.0-52.0); Hemoglobin 9.6 g/dL (14.0-18.0); Immature Granulocyte Absolute 0.07 K/mm3 (0.00-0.031); Immature Granulocyte Percent A 1.2 % (0-0.5); Lymphocytes Absolute Auto 0.95 K/mm3 (0.9-3.2); Lymphocytes Percent Auto 16.2 % (18.3-44.2); Mean Corpuscular HGB Conc 32.5 g/dl (32-36); Mean Corpuscular Hemoglobin 31.6 pg (26-34); Mean Platelet Volume 9.8 fl (7.4-10.4); Monocytes Absolute Auto 0.6 K/mm3 (0.1-0.6); Monocytes Percent Auto 10.4 % (2.6-8.5); Neutrophils Percent Auto 67.8 % (45.5-73.1); Platelet Count Result 323 k/mm3 (150-375); Red Blood Count 3.04 M/mm3 (4.6-6.20); Red Cell Distribution Width 13.5 % (11.5-14.5); White Blood Count 5.9 K/mm3 (4.5-10.0)
[2023-10-25 06:41] LABS: Alanine Aminotransferase 17 U/L (6-50); Albumin Level 2.4 g/dL (3.5-5.1); Alkaline Phosphatase 82 U/L (38-126); Anion Gap 6 mmol/L (4-12); Aspartate Amino Transferase 22 U/L (17-59); Bilirubin,Total 0.3 mg/dL (0.2-1.3); Blood Urea Nitrogen 4 mg/dL (9-20); Calcium 7.5 mg/dL (8.4-10.2); Carbon Dioxide 25 mmol/L (22-30); Chloride 106 mmol/L (98-107); Estimated CRCL calculation 88 ml/min; Estimated Glomerular Filt Rate > 60; Glucose 118 mg/dL (65-110); Potassium 2.7 mmol/L (3.4-5.0); Sodium 137 mmol/L (137-145)
[2023-10-25] MEDS: ENOXAPARIN 80 MG/0.8 ML SYRINGE SUB-Q ×2 (08:52→20:49)
[2023-10-25] MEDS: levETIRAcetam 1500MG/NACL100ML 1,500 MG/100 ML BAG 600 MG IVPB (08:52)
[2023-10-25] MEDS: DEXTROSE 5%/0.45% SOD CHL 1,000 ML 100 ML IV CONT ×2 (08:53→21:03)
--- NOTE | 2023-10-25 11:13 | PCNFU ---
Nutrition Follow-Up Complete: Severe protein calorie malnutrition related to chronic dementia as evidenced by weight loss 14%/3 months; intakes <75% needs >1 month; moderate muscle wasting to temporalis, clavicles, shoulders Goal:Advance diet as medically able Improve PO intake when diet advanced Pt not meeting goals, NPO at this time. Pt current nutrition is NPO. Nutrition recommendation: monitor status and diet orders Last recorded weight is 84.5 kg. Bowel Motility: +BM 10/24 Labs Reviewed: Hgb:9.6, HCT:29.5, Alb:2.4, K:2.7, BUN:4, Cr:0.6 Meds Noted: lovenox, eliquis Skin: WNL Additional Notes: pt is NPO at this time due to concerns for aspiration and swallow safety. Discussion of possible hospice transfer. Will continue to monitor status and orders Monitoring diet orders, weights, labs, plan of care Follow up in 3 days
--- NOTE | 2023-10-25 11:32 | PCSTNOTE ---
Please refer to the Bedside Swallow Evaluation in the EMR. Please note, silent aspiration cannot be ruled out at bedside. This 78-year-old male patient was evaluated at bedside to assess his ability to safely tolerate oral intake. Patient was admitted on 10/16/23 for evaluation of altered mental state. The pt presents with a history of dementia, seizure disorder, hypertension, hyperlipidemia, gastroesophageal reflux disease, depression, and glaucoma. His previous bedside swallow evaluation completed on 10/21/23 but due to a decline in status speech therapy was asked to reassess. A trial of ice chips and a puree via spoon was administered at bedside. The pt showed no sign of oral preparation or movement during intake of the ice chip or puree. No initiation or completion of a swallow was observed on either consistency. Given the results of this assessment, it is felt the pt is a poor candidate for oral intake in able to sustain nutritional needs, therefore it is recommended that this pt be put on a non-oral diet. Thank you for this referral.
[2023-10-25 11:45] LABS: Glucose Point of Care 101 mg/dl (65-105)
--- NOTE | 2023-10-25 14:29 | P.PNIM_ITS ---
Progress Note: A&P Assessment and Plan (1) Acute stroke due to ischemia: Code(s): I63.9 - Cerebral infarction, unspecified Status: Acute Assessment and Plan: 10/20/23: * Head CT was negative for any acute intracranial process only showed old infarcts and age-related changes * MRI of the brain showed acute small lacunar infarct in the left thalamus, few additional small old periventricular lacunar infarcts in the left frontal, right parietal, and right peritrigonal white matter which is more extensive periventricular predominant white matter T2 hyperintensity consistent with chronic small-vessel ischemic disease * Head and neck CTA showed 66% moderate stenosis of the right internal carotid artery and 60% moderate stenosis on the left, chronic age-related changes, large pulmonary embolism of the left pulmonary artery involving main as well as upper and lower lobe pulmonary arteries, large thrombus burden * Unknown last known well, normally alert and oriented times 2-3 at baseline * Continue neuro checks q.4 hour * PT/OT/speech ordered * NPO except for sips with meds, will need a swallow study verses modified barium swallow * Continue Eliquis 5 mg b.i.d. * Increased atorvastatin 80 mg daily, started on aspirin * Will get another echo today to look for right heart strain * Continuous telemetry monitoring * Neurology consulted * Spoke with Dr. Mayo neurologist at [facility] as we did not have neurology service s yesterday. He recommended the repeat echo, CTA of brain and carotid. * Case coordination consulted for hospice care 10/21/23: * Continue neuro checks q.4 hour * Speech therapy seen patient today and is recommending minced and moist level 5 diet and is able to have thin liquids. We will go ahead and advance his diet to a heart healthy diet for lunch today. Continue to monitor for signs of aspiration * We will hold off on any further hospice talk * Continue Eliquis 10 mg b.i.d. for PE/ DVT protocol * Still awaiting echocardiogram results from 10/20/2023 10/22/23: * LV systolic function normal with an estimated EF of 60%, no change from previous, no PFO * Continue Eliquis * PT and OT to work with patient today 10/23/23: * No change 10/24/23: * Repeat MRI was done yesterday and did not show any new acute changes from the previous study * Concerns with patient's ability to swallow we will go ahead and repeat his swallow study today * Approached hospice again today with the patient's and she would like to have a family meeting regarding his current condition and discuss hospice versus G-tube placement which the stressed that the patient would not want. * Continue PT and OT * Continue therapeutic Lovenox 10/25/23: * Remains NPO * Failed swallow study * Plan for hospice talk tomorrow (2) Pulmonary embolism: Code(s): I26.99 - Other pulmonary embolism without acute cor pulmonale Status: Acute Assessment and Plan: 10/20/23: * Head and neck CTA showed 66% moderate stenosis of the right internal carotid artery and 60% moderate stenosis on the left, chronic age-related changes, large pulmonary embolism of the left pulmonary artery involving main as well as upper and lower lobe pulmonary arteries, large thrombus burden * Continue Eliquis 5 mg b.i.d. * Will repeat echo to assess for right heart strain * Last echo on 10/17/2023 shown lower limits of normal LV systolic function with an estimated EF of 50-55%, grade 1 diastolic dysfunction. * Will get venous Doppler study as well * Case coordination consult for hospice care 10/21/23: * Repeat echo still p
--- NOTE | 2023-10-25 14:29 | PM.IMPN ---
Progress Note: A&P Assessment and Plan (1) Acute stroke due to ischemia: Code(s): I63.9 - Cerebral infarction, unspecified Status: Acute Assessment and Plan: 10/20/23: Head CT was negative for any acute intracranial process only showed old infarcts and age-related changes MRI of the brain showed acute small lacunar infarct in the left thalamus, few additional small old periventricular lacunar infarcts in the left frontal, right parietal, and right peritrigonal white matter which is more extensive periventricular predominant white matter T2 hyperintensity consistent with chronic small-vessel ischemic disease Head and neck CTA showed 66% moderate stenosis of the right internal carotid artery and 60% moderate stenosis on the left, chronic age-related changes, large pulmonary embolism of the left pulmonary artery involving main as well as upper and lower lobe pulmonary arteries, large thrombus burden Unknown last known well, normally alert and oriented times 2-3 at baseline Continue neuro checks q.4 hour PT/OT/speech ordered NPO except for sips with meds, will need a swallow study verses modified barium swallow Continue Eliquis 5 mg b.i.d. Increased atorvastatin 80 mg daily, started on aspirin Will get another echo today to look for right heart strain Continuous telemetry monitoring Neurology consulted Spoke with Dr. Mayo neurologist at [facility] as we did not have neurology services yesterday. He recommended the repeat echo, CTA of brain and carotid. Case coordination consulted for hospice care 10/21/23: Continue neuro checks q.4 hour Speech therapy seen patient today and is recommending minced and moist level 5 diet and is able to have thin liquids. We will go ahead and advance his diet to a heart healthy diet for lunch today. Continue to monitor for signs of aspiration We will hold off on any further hospice talk Continue Eliquis 10 mg b.i.d. for PE/ DVT protocol Still awaiting echocardiogram results from 10/20/2023 10/22/23: LV systolic function normal with an estimated EF of 60%, no change from previous, no PFO Continue Eliquis PT and OT to work with patient today 10/23/23: No change 10/24/23: Repeat MRI was done yesterday and did not show any new acute changes from the previous study Concerns with patient's ability to swallow we will go ahead and repeat his swallow study today Approached hospice again today with the patient's and she would like to have a family meeting regarding his current condition and discuss hospice versus G-tube placement which the stressed that the patient would not want. Continue PT and OT Continue therapeutic Lovenox 10/25/23: Remains NPO Failed swallow study Plan for hospice talk tomorrow (2) Pulmonary embolism: Code(s): I26.99 - Other pulmonary embolism without acute cor pulmonale Status: Acute Assessment and Plan: 10/20/23: Head and neck CTA showed 66% moderate stenosis of the right internal carotid artery and 60% moderate stenosis on the left, chronic age-related changes, large pulmonary embolism of the left pulmonary artery involving main as well as upper and lower lobe pulmonary arteries, large thrombus burden Continue Eliquis 5 mg b.i.d. Will repeat echo to assess for right heart strain Last echo on 10/17/2023 shown lower limits of normal LV systolic function with an estimated EF of 50-55%, grade 1 diastolic dysfunction. Will get venous Doppler study as well Case coordination consult for hospice care 10/21/23: Repeat echo still pending results Venous Doppler shows extensive deep vein thrombosis of the left lower extremity which includes left popliteal, posterior tibial, peroneal, and gastrocnemius veins Continue Eliquis 10 mg BID 10/22/23: Normal LV systolic function with an estimated EF of 40%, no change from previous, no PFO 10/23/23: No change to current treatment plan Continue eliquis. 10/24/23: Continue therapeutic Lo
[2023-10-25 18:31] LABS: Glucose Point of Care 103 mg/dl (65-105)
[2023-10-25] MEDS: levETIRAcetam 1000MG/NACL100ML 1,000 MG/100 ML BAG 400 MG IVPB ×2 (20:49→20:50)
[2023-10-25] MEDS: LATANOPROST 0.005% OP SOLN 2.5 ML BTL 1 DROP EACH EYE (20:49)
[2023-10-25 23:22] LABS: Glucose Point of Care 112 mg/dl (65-105)
[2023-10-26] VITALS: PULSE 57
[2023-10-26 04:00] VITALS: PULSE 50
[2023-10-26] MEDS: DEXTROSE 5%/0.45% SOD CHL 1,000 ML 100 ML IV CONT (05:00)
[2023-10-26 05:53] LABS: Glucose Point of Care 116 mg/dl (65-105)
[2023-10-26 05:56] VITALS: BP 140/52; PULSE 60; RESP 14; TEMP 36.2; O2SAT 100
[2023-10-26 06:44] LABS: Basophils Percent Auto 0.5 % (0.2-1.2); Eosinophils Absolute Auto 0.2 K/mm3 (0-0.3); Eosinophils Percent Auto 3.1 % (0-4.4); Hematocrit 28.3 % (42.0-52.0); Hemoglobin 9.2 g/dL (14.0-18.0); Immature Granulocyte Absolute 0.08 K/mm3 (0.00-0.031); Immature Granulocyte Percent A 1.4 % (0-0.5); Lymphocytes Absolute Auto 0.94 K/mm3 (0.9-3.2); Mean Corpuscular HGB Conc 32.5 g/dl (32-36); Mean Corpuscular Hemoglobin 31.8 pg (26-34); Mean Corpuscular Volume 97.9 fl (80-100); Mean Platelet Volume 9.7 fl (7.4-10.4); Monocytes Absolute Auto 0.6 K/mm3 (0.1-0.6); Monocytes Percent Auto 10.7 % (2.6-8.5); Neutrophils Absolute Auto 3.7 K/mm3 (1.3-6.7); Neutrophils Percent Auto 67.3 % (45.5-73.1); Platelet Count Result 344 k/mm3 (150-375); Red Blood Count 2.89 M/mm3 (4.6-6.20); Red Cell Distribution Width 13.5 % (11.5-14.5); White Blood Count 5.5 K/mm3 (4.5-10.0)
[2023-10-26 07:26] LABS: Alanine Aminotransferase 19 U/L (6-50); Albumin Level 2.4 g/dL (3.5-5.1); Alkaline Phosphatase 80 U/L (38-126); Anion Gap 5 mmol/L (4-12); Aspartate Amino Transferase 25 U/L (17-59); Bilirubin,Total 0.4 mg/dL (0.2-1.3); Blood Urea Nitrogen 5 mg/dL (9-20); Calcium 7.2 mg/dL (8.4-10.2); Carbon Dioxide 27 mmol/L (22-30); Chloride 105 mmol/L (98-107); Estimated CRCL calculation 76 ml/min; Estimated Glomerular Filt Rate > 60; Glucose 109 mg/dL (65-110); Potassium 2.7 mmol/L (3.4-5.0); Sodium 137 mmol/L (137-145)
[2023-10-26 07:48] LABS: Glucose Point of Care 108 mg/dl (65-105)
[2023-10-26 08:00] VITALS: PULSE 52
--- NOTE | 2023-10-26 08:12 | PM.DS ---
DS: Admitting Diagnosis Discharge Date 10/26/23 Admitting Diagnosis Hypernatremia Urinary tract infection Macrocytic anemia Hypertension Dementia Depression Glaucoma DS: Discharge Diagnosis Discharge Diagnosis (1) Acute stroke due to ischemia: Code(s): I63.9 - Cerebral infarction, unspecified Status: Acute (2) Pulmonary embolism: Code(s): I26.99 - Other pulmonary embolism without acute cor pulmonale Status: Acute (3) DVT (deep venous thrombosis): Code(s): I82.409 - Acute embolism and thrombosis of unspecified deep veins of unspecified lower extremity Status: Acute (4) Metabolic encephalopathy: Code(s): G93.41 - Metabolic encephalopathy Status: Acute (5) Macrocytic anemia: Code(s): D53.9 - Nutritional anemia, unspecified Status: Acute (6) Seizure disorder: Code(s): G40.909 - Epilepsy, unspecified, not intractable, without status epilepticus Status: Acute (7) Hypertension: Code(s): I10 - Essential (primary) hypertension Status: Acute DS: Summary Hospital Course Reason for hospitalization: Hypernatremia Urinary tract infection Macrocytic anemia Hypertension Dementia Depression Glaucoma Hospital Course: This is a 78-year-old male who presented to the hospital on 10/16/2023 for evaluation of altered mental status. Patient was brought to the emergency room via EMS from [facility]. Patient's baseline orientation is alert and oriented times 2-3. Workup in the hospital included head CT which was negative for any acute intracranial findings. Initial labs showed a white blood cell count of 11.5, hemoglobin 13.3, sodium 165, chloride 127, EGFR 53, iron 61 ferritin 317, alk-phos 128, troponin 0.058> 0.050> 0.051, TSH 0.649. UA was obtained which showed 2+ urine protein, trace ketone, 2+ leukocytes, 51-100 urine RBCs, 21-50 urine WBC 4+ bacteria. Urine culture was obtained and is pending. Echocardiogram showed normal LV systolic function with an estimated EF of 50-55%, grade 1 diastolic dysfunction. Patient was started on Rocephin. On 10/20/2023 patient was more alert however it was taking him a while to respond verbally back to questions we went ahead and got an MRI of the brain which showed a new infarct, head and neck CTA showed PE with large clot burden with 66% stenosis to the right ICA and 60% to the left ICA. We also got Doppler which showed extensive deep vein thrombus of the left lower extremity including the left popliteal, posterior tibial, peroneal, and gastrocnemius veins. Hospice talk was discussed with at that point and she stated that he would not want a G-tube if use going to have trouble swallowing. She preferred to go ahead with hospice at that time however on Sunday10/21/2023 patient was more alert and was holding conversation with me that day we went ahead and got a swallow and he actually passed the swallow study. We held off on hospice at that point considering he was showing marked improvement in mental status. Then on Sunday and Sunday he was less responsive again. He was again made NPO due to safety concerns and another MRI was repeated however nothing new shown on that MRI. We did another swallow study and he did not pass. Concerns now or for how to give him his medications and feed him safely which would go back to the G-tube talk. stress that she he would not want a G-tube in you would like to proceed with hospice considering these new findings. With him having a moments of being lucid and then moments of altered mental status he would not be safe to feet on a regular basis or give his meds p.o. on a regular basis. Patient and family met with [facility] today signed paperwork for full hospice. He will be discharged to [facility] in [facility]. He is stable for discharge at this time. While inpatient was treated for the hyper natremia which came back down to baseline, treated fully for urin
[2023-10-26] MEDS: levETIRAcetam 1500MG/NACL100ML 1,500 MG/100 ML BAG 600 MG IVPB (08:55)
[2023-10-26] MEDS: ENOXAPARIN 80 MG/0.8 ML SYRINGE SUB-Q (08:55)
[2023-10-26 11:25] LABS: Glucose Point of Care 118 mg/dl (65-105)
[2023-10-26 12:00] VITALS: PULSE 51
[2023-10-26 13:54] VITALS: BP 136/54; PULSE 58; RESP 14; TEMP 36.6; O2SAT 98
== END 2023-10-26 16:10 | DRG 64 ==
LOC: ANHED 16:05 → ANHIMU 16:55 → ANH3MEDSUR 10-18 15:18
PROVIDERS: Physician Assistant; Admitting Provider General Practice; Emergency Provider Student in an Organized Health Care Education/Training Program; PCP Internal Medicine; Visit Provider Nurse Practitioner Acute Care
DX: I63.9 Cerebral infarction, unspecified (principal); G93.41 Metabolic encephalopathy; I26.99 Other pulmonary embolism without acute cor pulmonale; N39.0 Urinary tract infection, site not specified; E87.0 Hyperosmolality and hypernatremia; I82.432 Acute embolism and thrombosis of left popliteal vein; I82.442 Acute embolism and thrombosis of left tibial vein; I82.452 Acute embolism and thrombosis of left peroneal vein; I82.462 Acute embolism and thrombosis of left calf muscular vein; B96.4 Proteus (mirabilis) (morganii) as the cause of diseases classified elsewhere; R13.10 Dysphagia, unspecified; D53.9 Nutritional anemia, unspecified; E78.5 Hyperlipidemia, unspecified; F03.90 Unspecified dementia, unspecified severity, without behavioral disturbance, psychotic disturbance, mood disturbance, and anxiety; G40.909 Epilepsy, unspecified, not intractable, without status epilepticus; H40.9 Unspecified glaucoma; I10 Essential (primary) hypertension; K21.9 Gastro-esophageal reflux disease without esophagitis; Z66 Do not resuscitate; Z86.73 Personal history of transient ischemic attack (TIA), and cerebral infarction without residual deficits
CPT/HCPCS: 36415; 70450; 70496; 70498; 70551; 80048; 80053; 80156; 80177; 81001; 82140; 82570; 82607; 82728; 82746; 82948; 83540; 83550; 83735; 83930; 83935; 84295; 84300; 84443; 84484; 85025; 85055; 85610; 85730; 87077; 87086; 87088; 87186; 92610; 93005; 93306; 93308; 93970; 96365; 96366; 96367; 96375; 97110; 97162; 97166; 97530; 99285; A9270; G0378; J0696; J1650; J1953; J3480; J7040; J7070; J7512; Q9967